=== PATIENT | male | born 1940 | race Caucasian/White ===

== ENCOUNTER 2022-04-07 12:23 | Inpatient (IN) | payer MEDICARE, OTHER ==
[2022-04-07 14:39] LABS: Basophils % (A) 1 %; Eosinophils # (A) 0.2 k/uL (0-0.7); Eosinophils % (A) 2 %; HCT 40.7 % (39.0-53.0); Lymphocytes # (A) 1.1 k/uL (1.0-4.8); Lymphocytes % (A) 14 %; MCH 31.3 pg (25.0-35.0); MCHC 34.6 g/dL (31.0-37.0); MCV 90.6 fL (80.0-100.0); Mean Platelet Volume 7.8; Monocytes # (A) 0.5 k/uL (0-1.0); Monocytes % (A) 6 %; Neutrophils % (A) 74 %; Platelet Count 235 k/uL (150-450); RBC 4.49 m/uL (4.30-5.90); RDW 12.7 % (11.5-15.5); WBC 8.2 k/uL (3.8-10.6)
[2022-04-07 14:51] LABS: ALT 16 U/L (4-49); AST 23 U/L (17-59); African American GFR (CKD) >90 (>60 ml/min/1.73 sqM); Alkaline Phosphatase 98 U/L (38-126); Anion Gap 12 mmol/L; Blood Urea Nitrogen 11 mg/dL (9-20); Calcium 8.9 mg/dL (8.4-10.2); Carbon Dioxide 23 mmol/L (22-30); Chloride 98 mmol/L (98-107); Glucose 99 mg/dL (74-99); Non-African American GFR(CKD) >90 (>60 ml/min/1.73 sqM); Potassium 3.9 mmol/L (3.5-5.1); Sodium 133 mmol/L (137-145); Total Bilirubin 0.5 mg/dL (0.2-1.3); Total Protein 7.1 g/dL (6.3-8.2)
--- NOTE | 2022-04-07 17:02 | ED ---
Skin/Abscess/FB HPI - General Chief complaint: Skin/Abscess/Foreign Body Stated complaint: leg wound Time Seen by Provider: 04/07/22 16:24 Source: patient, family, RN notes reviewed Mode of arrival: ambulatory Limitations: no limitations - History of Present Illness Initial comments: This is an 81-year-old male who presents to the emergency department for a left leg infection. States that this infection has been present for 5 weeks. Right before this occurred, he injured this leg when he was getting out of his truck, and he believes this injury caused the infection. He is currently on his second round of oral antibiotics. When this first began, he was given a 10 day course of oral antibiotics and an IM injection provided by urgent care. He is unable to recall what these medications were. For the last 5 days, he has been on oral doxycycline. During the time that this infection has been present, he has had physicians at urgent care attempt to drain it with no improvement. States that they were unable to get any purulent material and it was largely blood. Over the last 3-4 days is when he has felt like the infection has gotten much worse. It has also started draining, which it has not done in the past. He denies any fevers, but states that he has felt "off" for the last week. He is able to walk, but states that the leg itself is very painful and tender. 1-2 weeks ago he did have an ultrasound on this leg, which was negative for a blood clot. Denies any fevers, chills, sore throat, cough, dyspnea, chest pain, p alpitations, abdominal pain, nausea, vomiting, diarrhea, back pain, or headaches. MD complaint: rash, abscess/boil Onset/Timin -: week(s) Location: L[facility] Treatments Prior to Arrival: bandages, antibiotic - Related Data Allergies Allergy/AdvReac Type Severity Reaction Status Date / Time No Known Allergies Allergy Verified 04/07/22 12:35 Review of Systems ROS Statement: Those systems with pertinent positive or pertinent negative responses have been documented in the HPI. ROS Other: All systems not noted in ROS Statement are negative. Past Medical History Past Medical History: Hypertension, Prostate Disorder Past Surgical History: Hernia Repair General Exam Limitations: no limitations General appearance: alert, in no apparent distress Head exam: Present: atraumatic, normocephalic, normal inspection Respiratory exam: Present: normal lung sounds bilaterally. Absent: respiratory distress, wheezes, rales, rhonchi, stridor Cardiovascular Exam: Present: regular rate, normal rhythm, normal heart sounds. Absent: systolic murmur, diastolic murmur, rubs, gallop, clicks Extremities exam: Present: other (Diffuse erythema and swelling of the left lower extremity beginning inferior to the left patella and spreading distally. There is what appears to be a large 7 cm abscess with active serous and purulent drainage.) Neurological exam: Present: alert, oriented X3, CN II-XII intact Psychiatric exam: Present: normal affect, normal mood Course Vital Signs 04/07/22 12:35 Temperature 97.4 F L Pulse Rate 94 Respiratory 16 Rate Blood Pressure 130/79 O2 Sat by Pulse 97 Oximetry Medical Decision Making - Medical Decision Making This is an 81-year-old male who presents to the emergency department for a left leg infection. Lab work was obtained revealing no actionable findings and his vital signs are stable, which in combination do not create a septic presentation. X-ray of the left tib-fib obtained for evaluation of any osseous involvement. X-ray revealed diffuse soft tissue swelling of the left upper calf, knee, and distal thigh. Given that the patient has failed 2 rounds of antibiotics outpatient, he'll be admitted to medicine for failed outpatient antibiotic management. Patient started on vancomycin and cefepime with blood and wound cultures obtained prior. Additionally, ESR, CRP, and procalcitonin ordered, with results pending at the time of admission. This case was discussed in detail with the attending ED physician. Presentation, findings, and treatment plan discussed in detail as well. - Lab Data Result diagrams: 04/07/22 14:06 04/07/22 14:06 Lab Results 04/07/22 04/07/22 04/07/22 Range/Units 14:06 14:06 14:35 WBC 8.2 (3.8-10.6) k/uL RBC 4.49 (4.30-5.90) m/uL Hgb 14.0 (13.0-17.5) gm/dL Hct 40.7 (39.0-53.0) % MCV 90.6 (80.0-100.0) fL MCH 31.3 (25.0-35.0) pg MCHC 34.6 (31.0-37.0) g/dL RDW 12.7 (11.5-15.5) % Plt Count 235 (150-450) k/uL MPV 7.8 Neutrophils % 74 % Lymphocytes % 14 % Monocytes % 6 % Eosinophils % 2 % Basophils % 1 % Neutrophils # 6.0 (1.3-7.7) k/uL Lymphocytes # 1.1 (1.0-4.8) k/uL Monocytes # 0.5 (0-1.0) k/uL Eosinophils # 0.2 (0-0.7) k/uL Basophils # 0.0 (0-0.2) k/uL Sodium 133 L (137-145) mmol/L Potassium 3.9 (3.5-5.1) mmol/L Chloride 98 (98-107) mmol/L Carbon Dioxide 23 (22-30) mmol/L Anion Gap 12 mmol/L BUN 11 (9-20) mg/dL Creatinine 0.65 L (0.66-1.25) mg/dL Est GFR (CKD-EPI)AfAm >90 (>60 ml/min/1.73 sqM) Est GFR (CKD-EPI)NonAf >90 (>60 ml/min/1.73 sqM) Glucose 99 (74-99) mg/dL Plasma Lactic Acid Binu 0.9 (0.7-2.0) mmol/L Calcium 8.9 (8.4-10.2) mg/dL Total Bilirubin 0.5 (0.2-1.3) mg/dL AST 23 (17-59) U/L ALT 16 (4-49) U/L Alkaline Phosphatase 98 (38-126) U/L Total Protein 7.1 (6.3-8.2) g/dL Albumin 4.0 (3.5-5.0) g/dL - Radiology Data Radiology results: report reviewed, image reviewed Disposition Clinical Impression: Cellulitis of left leg, Abscess of left leg Disposition: ADMITTED IP TO THIS [facility] Referrals: Arthur Armstrong MD [Primary Care Provider] - 1-2 days
--- NOTE | 2022-04-07 17:20 | XR ---
EXAMINATION TYPE: XR tibia fibula LT DATE OF EXAM: 04/07/2022 4:49 PM INDICATION: Patient age:Male; 81 years old; Reason for study: infection; PHH. COMPARISON: None TECHNIQUE: The left tibia/fibula was examined in AP and lateral projections. FINDINGS: No evidence for fracture or dislocation. There is mild degenerative changes of the left kne e joint. Diffuse soft tissue swelling of the upper calf, knee and distal thigh regions. IMPRESSION: Diffuse soft tissue swelling. No acute osseous pathology.
[2022-04-07] MEDS ORDERED: VANCOMYCIN IV PER PHARMACY 1 EACH MISC MISCELLANE PRN (17:41)
[2022-04-07] MEDS ORDERED: VANCOMYCIN 1,250 MG in SODIUM CHLORIDE 0.9% 250 ML IVPB SCH (17:45)
[2022-04-07] MEDS ORDERED: CEFEPIME 2 GM in SODIUM CHLORIDE 0.9% 100 ML IVPB SCH (17:45)
[2022-04-07] MEDS ORDERED: ACETAMINOPHEN TAB 325 MG TAB PO PRN (17:59)
[2022-04-07] MEDS ORDERED: KETOROLAC 15 MG/ML 1 ML VIAL IVP PRN (17:59)
[2022-04-07] MEDS ORDERED: NALOXONE 0.4 MG/ML 1 ML VIAL IV PRN (17:59)
[2022-04-07] MEDS ORDERED: IBUPROFEN 400 MG TAB PO PRN (17:59)
[2022-04-07] MEDS ORDERED: HYDROcodone/APAP 5-325MG 1 EACH TAB PO PRN (17:59)
[2022-04-07] MEDS ORDERED: CEFEPIME 2 GM in SODIUM CHLORIDE 0.9% 100 ML IVPB ONE (18:00)
[2022-04-07] MEDS ORDERED: VANCOMYCIN 1,500 MG in SODIUM CHLORIDE 0.9% 250 ML IVPB ONE (18:00)
[2022-04-08] MEDS: TAMSULOSIN 0.4 MG CAP.ER.24H PO SCH ×2 (00:21→22:11)
[2022-04-08] MEDS: FINASTERIDE 5 MG TAB PO SCH ×2 (00:23→22:11)
[2022-04-08] MEDS: VANCOMYCIN 1,500 MG in SODIUM CHLORIDE 0.9% 250 ML IVPB SCH ×2 (05:20→17:17)
[2022-04-08] MEDS: CEFEPIME 2 GM in SODIUM CHLORIDE 0.9% 100 ML IVPB SCH ×2 (05:48→17:18)
[2022-04-08 07:34] LABS: African American GFR (CKD) >90 (>60 ml/min/1.73 sqM); Non-African American GFR(CKD) >90 (>60 ml/min/1.73 sqM)
[2022-04-08] MEDS: CYANOCOBALAMIN 500 MCG TAB PO SCH (07:54)
[2022-04-08] MEDS: amLODIPine 5 MG TAB PO SCH (07:54)
[2022-04-08] MEDS ORDERED: amLODIPine 10 MG TAB PO SCH (09:00)
--- NOTE | 2022-04-08 11:40 | P.GSCN ---
History of Present Illness History of present illness: 81-year-old gentleman patient came to ER with history of trauma to the left lower leg for the past 4 weeks. Patient went to the urgent care they made a small incision and they drained it but his swelling persisted and patient was put on antibiotic not responding now he is draining Purulent drainage patient had a culture done and is spending patient is an IV antibiotic and infectious disease. Medical history no history of diabetes patient has history of hypertension and prostate disorder Neck is supple no bruit appreciated Chest is clear good and both lungs abdomen is soft nontender Vascular femorals are palpable posterior tibial palpable patient has a marked swelling of the left leg most likely infected hematoma Plan is a I&D and debridement and deep culture Past Medical History Past Medical History: Hypertension, Prostate Disorder History of Any Multi-Drug Resistant Organisms: None Reported Past Surgical History: Hernia Repair Past Anesthesia/Blood Transfusion Reactions: No Reported Reaction Past Psychological History: No Psychological Hx Reported Smoking Status: Former smoker Past Alcohol Use History: Occasional Medications and Allergies Home Medications Medication Instructions Recorded Confirmed Type Cyanocobalamin (Vitamin B-12) 1,000 mcg PO DAILY 04/07/22 04/07/22 History [Vitamin B-12] Doxycycline Hyclate 100 mg PO BID 04/07/22 04/07/22 History Finasteride [Proscar] 5 mg PO HS 04/07/22 04/07/22 History Tamsulosin [Flomax] 0.4 mg PO HS 04/07/22 04/07/22 History Vit C/E/Zn/Coppr/Lutein/Zeaxan 1 cap PO BID 04/07/22 04/07/22 History [Preservision Areds 2 Softgel] amLODIPine [Norvasc] 5 mg PO DAILY 04/07/22 04/07/22 History Allergies Allergy/AdvReac Type Severity Reaction Status Date / Time No Known Allergies Allergy Verified 04/07/22 19:50 Surgical - Exam Vital Signs Temp Pulse Resp BP Pulse Ox 97.4 F L 94 16 130/79 97 04/07/22 12:35 04/07/22 12:35 04/07/22 12:35 04/07/22 12:35 04/07/22 12:35 Results - Labs 04/07/22 14:06 04/08/22 06:30 Abnormal Lab Results - Last 24 Hours (Table) 04/07/22 04/07/2204/07/22 Range/Units 14:06 18:30 18:30 ESR 24 H (0-15) mm/hr Sodium 133 L (137-145) mmol/L Creatinine 0.65 L (0.66-1.25) mg/dL C-Reactive Protein 4.0 H (<1.0) mg/dL 04/08/22 Range/Units 06:30 ESR (0-15) mm/hr Sodium (137-145) mmol/L Creatinine 0.55 L (0.66-1.25) mg/dL C-Reactive Protein (<1.0) mg/dL Microbiology - Last 24 Hours (Table) 04/07/22 16:54 Gram Stain - Preliminary Leg - Left Wound Culture - Preliminary 04/07/22 16:54 Anaerobic Culture - Preliminary Leg - Left Diabetes panel 04/07/22 04/08/22 Range/Units 14:06 06:30 Sodium 133 L (137-145) mmol/L Potassium 3.9 (3.5-5.1) mmol/L Chloride 98 (98-107) mmol/L Carbon Dioxide 23 (22-30) mmol/L BUN 11 (9-20) mg/dL Creatinine 0.65 L 0.55 L (0.66-1.25) mg/dL Glucose 99 (74-99) mg/dL Calcium 8.9 (8.4-10.2) mg/dL AST 23 (17-59) U/L ALT 16 (4-49) U/L Alkaline Phosphatase 98 (38-126) U/L Total Protein 7.1 (6.3-8.2) g/dL Albumin 4.0 (3.5-5.0) g/dL Calcium panel 04/07/22 Range/Units 14:06 Calcium 8.9 (8.4-10.2) mg/dL Albumin 4.0 (3.5-5.0) g/dL Pituitary panel 04/07/22 04/08/22 Range/Units 14:06 06:30 Sodium 133 L (137-145) mmol/L Potassium 3.9 (3.5-5.1) mmol/L Chloride 98 (98-107) mmol/L Carbon Dioxide 23 (22-30) mmol/L BUN 11 (9-20) mg/dL Creatinine 0.65 L 0.55 L (0.66-1.25) mg/dL Glucose 99 (74-99) mg/dL Calcium 8.9 (8.4-10.2) mg/dL Adrenal panel 04/07/22 04/08/22 Range/Units 14:06 06:30 Sodium 133 L (137-145) mmol/L Potassium 3.9 (3.5-5.1) mmol/L Chloride 98 (98-107) mmol/L Carbon Dioxide 23 (22-30) mmol/L BUN 11 (9-20) mg/dL Creatinine 0.65 L 0.55 L (0.66-1.25) mg/dL Glucose 99 (74-99) mg/dL Calcium 8.9 (8.4-10.2) mg/dL Total Bilirubin 0.5 (0.2-1.3) mg/dL AST 23 (17-59) U/L ALT 16 (4-49) U/L Alkaline Phosphatase 98 (38-126) U/L Total Protein 7.1 (6.3-8.2) g/dL Albumin 4.0 (3.5-5.0) g/dL
[2022-04-08] MEDS ORDERED: NAPROXEN 250 MG TAB PO STA (12:17)
[2022-04-08] MEDS: ENOXAPARIN 40 MG/0.4 ML SYRINGE SQ SCH (14:16)
--- NOTE | 2022-04-08 18:02 | P.HPIM ---
History of Present Illness H&P Date: 04/08/22 Chief Complaint: Left leg wound This is a pleasant 81-year-old patient who follows with visiting physicians Dr. Armstrong. Patient is a resident of [facility]. Chronic stable medical conditions include hypertension, BPH, B12. About 5 weeks ago patient is helping his son unload stuff from his truck. He put the stuff on the ground. When he turned around he bumped his left leg on the same. There was a cut there. Subsequently medical. He did have a visit. By his family doctor and put him on doxycycline which took for 6 days. It progressed to get worse. Patient d eveloped a swelling with redness of the left lower extremity. No fever no chills. Appetite has been fair. No change in bowel pattern. He did have a visit to the urgent care with attempt to drainage not much was obtained. Recent ultrasound was negative for DVT. Review of systems: GEN.: Tired, EYES: None HEENT: None NECK: None RESPIRATORY: None CARDIOVASCULAR: None GASTROINTESTINAL: None GENITOURINARY: None MUSCULOSKELETAL: Joint pains LYMPHATICS: None HEMATOLOGICAL: None PSYCHIATRY: None NEUROLOGICAL: None Past medical history to include: Hypertension, prostate disorder, B12 deficiency Social history: Lives at [facility]. His also listed the dementia unit. Patient smoked for about 25 years stopped about 37 years ago. Used to work for IT. Alcohol occasionally. Physical examination: VITAL SIGNS: 97.4, 94, 16, 1:30/79, 97% room air GENERAL: BMI 24.4, declining but awake not in distress. EYES: Pupils equal. Conjunctiva normal. HEENT: External appearance of nose and ears normal, oral cavity grossly normal. NECK: JVD not raised; masses not palpable. HEART: First and second heart sounds are normal; no edema. LUNGS: Respiratory rate normal; clear to auscultation. ABDOMEN: Soft, nontender, liver spleen not palpable, no masses palpable. PSYCH: Alert and oriented x3; mood and affect normal. MUSCULOSKELETAL:No Clubbing/cyanosis;muscles-grossly intact. Evidence of OA. Left lower extremity large area of swelling tenderness with surrounding cellulitis extending from the knee down to the lower extremity. NEUROLOGICAL: Cranial nerves grossly intact; no facial asymmetry, power and sensation grossly intact. LYMPHATICS: No lymph nodes palpable in the axilla and neck INVESTIGATIONS, reviewed in the clinical context: White count 8.2 hemoglobin 14 platelets 235 sodium 133 potassium 3.9 creatinine 0.65 CRP 4 Pro-calcitonin 0.05 Assessment plan: -Suspected infected hematoma. Patient had injury about 5 weeks ago. He decided go. That had a course of doxycycline for 6 days. No major improvement. Now presented increasing local pain and surrounding cellulitis. IV cefepime, IV vancomycin. Consultation to vascular and ID. -BPH Proscar -Vitamin B12 deficiency Vitamin B12 -Essential hypertension Norvasc IV cefepime, IV vancomycin. Consultation to vascular 90. Should be taken to the OR tomorrow. Resume home medications. Subcu Lovenox. Naproxen for anti- inflammatory and pain. Care was discussed with the patient. Questions answered. Given the complexity and severity of patient's condition expect the patient to be in the hospital at least for 2 overnights Past Medical History Past Medical History: Hypertension, Prostate Disorder History of Any Multi-Drug Resistant Organisms: None Reported Past Surgical History: Hernia Repair Past Anesthesia/Blood Transfusion Reactions: No Reported Reaction Past Psychological History: No Psychological Hx Reported Smoking Status: Former smoker Past Alcohol Use History: Occasional Medications and Allergies Home Medications Medication Instructions Recorded Confirmed Type Cyanocobalamin (Vitamin B-12) 1,000 mcg PO DAILY 04/07/22 04/07/22 History [Vitamin B-12] Doxycycline Hyclate 100 mg PO BID 04/07/22 04/07/22 History Finasteride [Proscar] 5 mg PO HS 04/07/22 04/07/22 History Tamsulosin [Flomax] 0.4 mg PO HS 04/07/22 04/07/22 History Vit C/E/Zn/Coppr/Lutein/Zeaxan 1 cap PO BID 04/07/22 04/07/22 History [Preservision Areds 2 Softgel] amLODIPine [Norvasc] 5 mg PO DAILY 04/07/22 04/07/22 History Allergies Allergy/AdvReac Type Severity Reaction Status Date / Time No Known Allergies Allergy Verified 04/07/22 19:50 Physical Exam Vitals: Vital Signs Temp Pulse Pulse Resp BP BP Pulse Ox 04/08/22 11:14 97.9 F 70 16 133/69 96 04/08/22 08:03 73 152/76 04/08/22 05:55 98.4 F 79 16 119/69 95 04/07/22 22:57 97.6 F 95 16 150/80 97 04/07/22 12:35 97.4 F L 94 16 130/79 97 Intake and Output 04/07/22 04/08/22 04/08/22 22:59 06:59 14:59 Other: # Voids 2 Results CBC & Chem 7: 04/07/22 14:06 04/08/22 06:30 Labs: Abnormal Lab Results - Last 24 Hours (Table) 04/07/22 04/07/22 04/07/22 Range/Units 14:06 18:30 18:30 ESR 24 H (0-15) mm/hr Sodium 133 L (137-145) mmol/L Creatinine 0.65 L (0.66-1.25) mg/dL C-Reactive Protein 4.0 H (<1.0) mg/dL 04/08/22 Range/Units 06:30 ESR (0-15) mm/hr Sodium (137-145) mmol/L Creatinine 0.55 L (0.66-1.25) mg/dL C-Reactive Protein (<1.0) mg/dL Microbiology - Last 24 Hours (Table) 04/07/22 16:54 Gram Stain - Preliminary Leg - Left Wound Culture - Preliminary 04/07/22 16:54 Anaerobic Culture - Preliminary Leg - Left Thrombosis Risk Factor Assmnt - Choose All That Apply Any of the Below Risk Factors Present?: Yes Each Factor Represents 1 point: Swollen legs (current) Other Risk Factors: Yes Each Risk Factor Represents 3 Points: Age 75 years or older Thrombosis Risk Factor Assessment Total Risk Factor Score: 4 Thrombosis Risk Factor Assessment Level: Moderate Risk
[2022-04-08] MEDS: NAPROXEN 250 MG TAB PO SCH (22:11)
[2022-04-09] MEDS ORDERED: VANCOMYCIN TROUGH DUE 1 EACH MISC MISCELLANE ONE (05:00)
[2022-04-09 05:01] LABS: African American GFR (CKD) >90 (>60 ml/min/1.73 sqM); Non-African American GFR(CKD) >90 (>60 ml/min/1.73 sqM)
[2022-04-09] MEDS: VANCOMYCIN 1,500 MG in SODIUM CHLORIDE 0.9% 250 ML IVPB SCH ×2 (05:54→19:47)
[2022-04-09] MEDS: CEFEPIME 2 GM in SODIUM CHLORIDE 0.9% 100 ML IVPB SCH ×2 (05:55→19:47)
[2022-04-09] MEDS: NAPROXEN 250 MG TAB PO SCH ×3 (09:07→19:48)
[2022-04-09] MEDS: amLODIPine 5 MG TAB PO SCH (09:07)
[2022-04-09] MEDS: ENOXAPARIN 40 MG/0.4 ML SYRINGE SQ SCH (09:12)
--- NOTE | 2022-04-09 10:37 | P.PN ---
Progress Note - Text Progress Note Date: 04/09/22 Chief Complaint: Left leg wound This is a pleasant 81-year-old patient who follows with visiting physicians Dr. Armstrong. Patient is a resident of [facility]. Chronic stable medical conditions include hypertension, BPH, B12. About 5 weeks ago patient is helping his son unload stuff from his truck. He put the stuff on the ground. When he turned around he bumped his left leg on the same. There was a cut there. Subsequently medical. He did have a visit. By his family doctor and put him on doxycycline which took for 6 days. It progressed to get worse. Patient developed a swelling with redness of the left lower extremity. No fever no chills. Appetite has been fair. No change in bowel pattern. He did have a visit to the urgent care with attempt to drainage not much was obtained. Recent ultrasound was negative for DVT. Admitted with what appears to be left leg abscess/infected hematoma. Surrounding cellulitis. On IV cefepime and vancomycin. 04/09/2022: Sitting up in bed. Some local pain present. Ending surgery later this afternoon. On IV antibiotics include vancomycin and cefepime. Patient's son Scottie visiting. Active Medications Acetaminophen (Acetaminophen Tab 325 Mg Tab) 650 mg PO Q6HR PRN PRN Reason: Mild Pain or Fever > 100.5 Hydrocodone Bitart/Acetaminophen (Hydrocodone/Apap 5-325mg 1 Each Tab) 1 each PO Q4HR PRN PRN Reason: Moderate Pain (Scale 4 to 6) Amlodipine Besylate (Amlodipine 5 Mg Tab) 5 mg PO DAILY [facility] Last Admin: 04/09/22 09:07 Dose: 5 mg Cyanocobalamin (Cyanocobalamin 500 Mcg Tab) 1,000 mcg PO DAILY [facility] Last Admin: 04/08/22 07:54 Dose: 1,000 mcg Enoxaparin Sodium (Enoxaparin 40 Mg/0.4 Ml Syringe) 40 mg SQ DAILY [facility] Last Admin: 04/09/22 09:12 Dose: Not Given Finasteride (Finasteride 5 Mg Tab) 5 mg PO HS [facility] Last Admin: 04/08/22 22:11 Dose: 5 mg Vancomycin HCl 1,500 mg/ (Sodium Chloride) 250 mls @ 125 mls/hr IVPB Q12H [facility] Last Admin: 04/09/22 05:54 Dose: 125 mls/hr Cefepime HCl 2 gm/ Sodium (Chloride) 100 mls @ 25 mls/hr IVPB Q12H [facility] Last Admin: 04/09/22 05:55 Dose: 25 mls/hr Naloxone HCl (Naloxone 0.4 Mg/Ml 1 Ml Vial) 0.2 mg IV Q2M PRN PRN Reason: Opioid Reversal Naproxen (Naproxen 250 Mg Tab) 250 mg PO TID [facility] Last Admin: 04/09/22 09:07 Dose: 250 mg Ondansetron HCl (Ondansetron 4 Mg/2 Ml Vial) 4 mg IVP Q8HR PRN PRN Reason: Nausea And Vomiting Tamsulosin HCl (Tamsulosin 0.4 Mg Cap.Er.24h) 0.4 mg PO HS [facility] Last Admin: 04/08/22 22:11 Dose: 0.4 mg Past medical history to include: Hypertension, prostate disorder, B12 deficiency Social history: Lives at [facility]. His also listed the dementia unit. Patient smoked for about 25 years stopped about 37 years ago. Used to work for IT. Alcohol occasionally. Physical examination: VITAL SIGNS: 97.9, 72, 18, 137/74, 95% room air GENERAL: reclining but awake not in distress. EYES: Pupils equal. Conjunctiva normal. HEENT: External appearance of nose and ears normal, oral cavity grossly normal. NECK: JVD not raised; masses not palpable. HEART: First and second heart sounds are normal; no edema. LUNGS: Respiratory rate normal; clear to auscultation. ABDOMEN: Soft, nontender, liver spleen not palpable, no masses palpable. PSYCH: Alert and oriented x3; mood and affect normal. MUSCULOSKELETAL:No Clubbing/cyanosis;muscles-grossly intact. Evidence of OA. Left lower extremity large area of swelling tenderness with surrounding cellulitis extending from the knee down to the lower extremity. INVESTIGATIONS, reviewed in the clinical context: ESR 24 White count 8.2 hemoglobin 14 platelets 235 sodium 133 potassium 3.9 creatinine 0.65 CRP 4 Pro-calcitonin 0.05 Assessment plan: -Suspected infected hematoma. - injury about 5 weeks ago. had a course of doxycycline for 6 days. No major improvement. Now presented increasing local pain and surrounding cellulitis. IV cefepime, IV vancomycin. Consultation to vascular and ID. pending surgery later today -BPH Proscar -Vitamin B12 deficiency Vitamin B12 -Essential hypertension Norvasc IV cefepime, IV vancomycin. Pending surgery later this afternoon. Discussed with patient's son the bedside.
--- NOTE | 2022-04-09 11:10 | P.CONS ---
History of Present Illness - Reason for Consult Consult date: 04/08/22 - History of Present Illness Patient is 81 year old male presenting to be of for evaluation of worsening swelling redness to left lower extremity apparent the patient did have an injury to the left lower leg when he was getting out of the truck and believed to have hit the end of the leg patient subsequently noticed to have increasing swelling and redness and apparent has been treated with a course of antibiotic last course has been ordered AGAIN however the last few days the patient noticed to have increasing swelling and redness to left lower extremity patient describing pain to be throbbing 6-7 out of 10 and no radiation with associated swelling redness did have minimal drainage but no foul-smelling, p atient presented to the hospital was afebrile but did have a normal white count patient did have blood culture as well as local cultures obtained which are currently pending patient did have x-ray of the left tibia and fibula which did show some diffuse soft tissue swelling no acute bony abnormality, patient has been evaluated by vascular surgery planning for I&D debridement and deep culture, patient is currently be treated with vancomycin and cefepime and infectious disease was consulted for further management of antibiotic therapy Past Medical History Past Medical History: Hypertension, Prostate Disorder History of Any Multi-Drug Resistant Organisms: None Reported Past Surgical History: Hernia Repair Past Anesthesia/Blood Transfusion Reactions: No Reported Reaction Past Psychological History: No Psychological Hx Reported Smoking Status: Former smoker Past Alcohol Use History: Occasional Medications and Allergies Home Medications Medication Instructions Recorded Confirmed Type Cyanocobalamin (Vitamin B-12) 1,000 mcg PO DAILY 04/07/22 04/07/22 History [Vitamin B-12] Doxycycline Hyclate 100 mg PO BID 04/07/22 04/07/22 History Finasteride [Proscar] 5 mg PO HS 04/07/22 04/07/22 History Tamsulosin [Flomax] 0.4 mg PO HS 04/07/22 04/07/22 History Vit C/E/Zn/Coppr/Lutein/Zeaxan 1 cap PO BID 04/07/22 04/07/22 History [Preservision Areds 2 Softgel] amLODIPine [Norvasc] 5 mg PO DAILY 04/07/22 04/07/22 History Allergies Allergy/AdvReac Type Severity Reaction Status Date / Time No Known Allergies Allergy Verified 04/07/22 19:50 Physical Exam Vitals: Vital Signs Temp Pulse Pulse Resp BP BP Pulse Ox 04/08/22 08:03 73 152/76 04/08/22 05:55 98.4 F 79 16 119/69 95 04/07/22 22:57 97.6 F 95 16 150/80 97 04/07/22 12:35 97.4 F L 94 16 130/79 97 Intake and Output 04/07/22 04/08/22 04/08/22 22:59 06:59 14:59 Other: # Voids 2 Results CBC & Chem 7: 04/07/22 14:06 04/09/22 04:07 Labs: Abnormal Lab Results - Last 24 Hours (Table) 04/07/22 04/07/22 04/07/22 Range/Units 14:06 18:30 18:30 ESR 24 H (0-15) mm/hr Sodium 133 L (137-145) mmol/L Creatinine 0.65 L (0.66-1.25) mg/dL C-Reactive Protein 4.0 H (<1.0) mg/dL 04/08/22 Range/Units 06:30 ESR (0-15) mm/hr Sodium (137-145) mmol/L Creatinine 0.55 L (0.66-1.25) mg/dL C-Reactive Protein (<1.0) mg/dL Microbiology - Last 24 Hours (Table) 04/07/22 16:54 Gram Stain - Preliminary Leg - Left Wound Culture - Preliminary 04/07/22 16:54 Anaerobic Culture - Preliminary Leg - Left Assessment and Plan Plan: 1patient with the acute traumatic injury to the left lower extremity concerning for secondary cellulitis failing outpatient oral by therapy more likely from gram-positive skin gael less likely gram-negative infection 2-vascular surgery has evaluated the patient waiting for I&D and deep cultures 3-continue the vancomycin and cefepime while waiting for the cultures to finalize 4marked the area of the redness and dry protective dressing to the area We will follow on clinical condition and cultures to further adjust medication if needed Thank you for this consultation will follow this patient with you Time with Patient: Greater than 30
[2022-04-09] MEDS: CYANOCOBALAMIN 500 MCG TAB PO SCH (15:52)
[2022-04-09] MEDS ORDERED: fentaNYL (PF) 50 MCG/ML 2 ML AMP ONE (18:10)
[2022-04-09] MEDS ORDERED: PROPOFOL 10 MG/ML 20 ML VIAL IV ONE (18:10)
[2022-04-09] MEDS ORDERED: MIDAZOLAM 2 MG/2 ML VIAL ONE (18:10)
[2022-04-09] MEDS ORDERED: LIDOCAINE 2% INJ 20 MG/ML (2 ML VIAL) ONE (18:10)
[2022-04-09] MEDS ORDERED: SODIUM CHLORIDE 0.9% 1,000 ML IV ONE (18:10)
[2022-04-09] MEDS: FINASTERIDE 5 MG TAB PO SCH (19:48)
[2022-04-09] MEDS: TAMSULOSIN 0.4 MG CAP.ER.24H PO SCH (19:48)
[2022-04-10] MEDS: LACTATED RINGERS 1,000 ML IV SCH ×2 (00:25→15:57)
--- NOTE | 2022-04-10 01:40 | OP ---
OPERATIVE REPORT PREOPERATIVE DIAGNOSIS: Infected hematoma, left lower leg. POSTOPERATIVE DIAGNOSIS: Infected hematoma, left lower leg. OPERATION: Incision and drainage of infected hematoma with deep culture. DESCRIPTION OF PROCEDURE: This patient was brought to the operating room. Left leg was prepped and draped in the usual sterile manner. This patient had a trauma to the lower leg a few weeks ago. The patient came to the ER with swelling and discomfort in left lower leg. Incision was made on the left lower leg lateral aspect, deepened through skin fat and fascia. There was a large pocket of pus with some fat necrosis. The pus was completely drained and we took some deep culture. Wound was irrigated with hydrogen peroxide and saline. No active bleeding was noted. We used Aquacel Rope, which was placed. Pressure dressing applied. Patient tolerated the procedure well and was sent to the recovery room in satisfactory condition. SOUMYA / LEE: [id number] /
[2022-04-10] MEDS: VANCOMYCIN 1,500 MG in SODIUM CHLORIDE 0.9% 250 ML IVPB SCH (05:15)
[2022-04-10] MEDS: CEFEPIME 2 GM in SODIUM CHLORIDE 0.9% 100 ML IVPB SCH (05:15)
[2022-04-10 06:35] LABS: Basophils % (A) 0 %; Eosinophils # (A) 0.2 k/uL (0-0.7); Eosinophils % (A) 4 %; HCT 37.2 % (39.0-53.0); HGB 12.6 gm/dL (13.0-17.5); Lymphocytes # (A) 0.8 k/uL (1.0-4.8); Lymphocytes % (A) 14 %; MCH 30.8 pg (25.0-35.0); MCHC 33.8 g/dL (31.0-37.0); MCV 91.1 fL (80.0-100.0); Mean Platelet Volume 7.7; Monocytes # (A) 0.5 k/uL (0-1.0); Monocytes % (A) 8 %; Neutrophils # (A) 4.4 k/uL (1.3-7.7); Neutrophils % (A) 73 %; Platelet Count 213 k/uL (150-450); RBC 4.09 m/uL (4.30-5.90); RDW 12.5 % (11.5-15.5); WBC 6.1 k/uL (3.8-10.6)
[2022-04-10 06:54] LABS: African American GFR (CKD) >90 (>60 ml/min/1.73 sqM); Anion Gap 7 mmol/L; Blood Urea Nitrogen 25 mg/dL (9-20); Calcium 7.3 mg/dL (8.4-10.2); Carbon Dioxide 21 mmol/L (22-30); Chloride 107 mmol/L (98-107); Glucose 103 mg/dL (74-99); Non-African American GFR(CKD) 87 (>60 ml/min/1.73 sqM); Potassium 3.7 mmol/L (3.5-5.1); Sodium 135 mmol/L (137-145)
[2022-04-10] MEDS ORDERED: HYDROmorphone 0.5 MG/0.5 ML SYRINGE IVP PRN (07:00)
--- NOTE | 2022-04-10 08:38 | P.PN ---
Subjective Progress Note Date: 04/09/22 Principal diagnosis: Left leg infected hematoma Patient is a 81-year-old male with a recent history of trauma to the left leg developing a swelling redness failing outpatient ordered by therapy concerning for infected hematoma. On today's evaluation that is 04/09/2022, the patient denies having any fever and chills, patient is complaining of pain to the left lower extremity no worsening of her chest pain shortness of breath or cough no abdominal pain no diarrhea Objective - Vital Signs Vital signs: Vital Signs Temp 97.9 F 04/09/22 04:13 Pulse 72 04/09/22 04:13 Resp 18 04/09/22 04:13 BP 137/74 04/09/22 04:13 Pulse Ox 95 04/09/22 04:13 FiO2 Intake & Output 04/08/22 04/09/22 04/09/22 18:59 06:59 18:59 Intake Total 360 Balance 360 Intake: Oral 360 Other: Voiding Method Toilet # Voids 1 - Exam GENERAL DESCRIPTION: An elderly male lying in bed in no distress RESPIRATORY SYSTEM: Unlabored breathing , decreased breath sounds at bases HEART: S1 S2 regular rate and rhythm , ABDOMEN: Soft , no tenderness EXTREMITIES: Left lower extremity significant swelling and redness no drainage - Labs CBC & Chem 7: 04/10/22 05:48 04/10/22 05:48 Labs: Abnormal Lab Results - Last 24 Hours (Table) 04/09/22 Range/Units 04:07 Creatinine 0.61 L (0.66-1.25) mg/dL Microbiology - Last 24 Hours (Table) 04/07/22 16:54 Gram Stain - Preliminary Leg - Left Wound Culture - Preliminary Presumptive Staph aureus 04/07/22 14:06 Blood Culture - Preliminary Blood No Growth after 24 hours 04/07/22 14:06 Blood Culture - Preliminary Blood No Growth after 24 hours Assessment and Plan (1) Abscess of left leg Current Visit: Yes Status: Acute Code(s): L02.416 - CUTANEOUS ABSCESS OF LEFT LOWER LIMB SNOMED Code(s): 126472688 Plan: 1patient with the acute traumatic injury to the left lower extremity concerning for secondary cellulitis failing outpatient oral by therapy more likely from gram-positive skin gael less likely gram-negative infection 2-vascular surgery has evaluated the patient waiting for I&D and deep cultures, scheduled for this afternoon 3-patient to continue the vancomycin and cefepime while waiting for the cultures to finalize Time with Patient: Less than 30
[2022-04-10] MEDS: CYANOCOBALAMIN 500 MCG TAB PO SCH (10:05)
[2022-04-10] MEDS: ENOXAPARIN 40 MG/0.4 ML SYRINGE SQ SCH (10:05)
[2022-04-10] MEDS: amLODIPine 5 MG TAB PO SCH (10:05)
[2022-04-10] MEDS: NAPROXEN 250 MG TAB PO SCH ×3 (10:06→20:58)
--- NOTE | 2022-04-10 12:10 | P.PN ---
Progress Note - Text Progress Note Date: 04/10/22 Chief Complaint: Left leg wound This is a pleasant 81-year-old patient who follows with visiting physicians Dr. Armstrong. Patient is a resident of [facility]. Chronic stable medical conditions include hypertension, BPH, B12. About 5 weeks ago patient is helping his son unload stuff from his truck. He put the stuff on the ground. When he turned around he bumped his left leg on the same. There was a cut there. Subsequently medical. He did have a visit. By his family doctor and put him on doxycycline which took for 6 days. It progressed to get worse. Patient developed a swelling with redness of the left lower extremity. No fever no chills. Appetite has been fair. No change in bowel pattern. He did have a visit to the urgent care with attempt to drainage not much was obtained. Recent ultrasound was negative for DVT. Admitted with what appears to be left leg abscess/infected hematoma. Surrounding cellulitis. On IV cefepime and vancomycin. 04/09/2022: Sitting up in bed. Some local pain present. Ending surgery later this afternoon. On IV antibiotics include vancomycin and cefepime. Patient's son Scottie visiting. 04/10/2022: Left leg abscess was drained by Dr. Mittal yesterday. Large pocket of pus was removed. Cultures pending. Wound culture from the is growing MSSA. Antibiotics switched over to IV Ancef. Had his breakfast. Told to sit up in a chair. Active Medications Acetaminophen (Acetaminophen Tab 325 Mg Tab) 650 mg PO Q6HR PRN PRN Reason: Mild Pain or Fever > 100.5 Hydrocodone Bitart/Acetaminophen (Hydrocodone/Apap 5-325mg 1 Each Tab) 1 each PO Q4HR PRN PRN Reason: Moderate Pain (Scale 4 to 6) Amlodipine Besylate (Amlodipine 5 Mg Tab) 5 mg PO DAILY [facility] Last Admin: 04/10/22 10:05 Dose: 5 mg Cyanocobalamin (Cyanocobalamin 500 Mcg Tab) 1,000 mcg PO DAILY [facility] Last Admin: 04/10/22 10:05 Dose: 1,000 mcg Enoxaparin Sodium (Enoxaparin 40 Mg/0.4 Ml Syringe) 40 mg SQ DAILY [facility] Last Admin: 04/10/22 10:05 Dose: 40 mg Finasteride (Finasteride 5 Mg Tab) 5 mg PO HS [facility] Last Admin: 04/09/22 19:48 Dose: 5 mg Hydromorphone HCl (Hydromorphone 0.5 Mg/0.5 Ml Syringe) 0.5 mg IVP Q5M PRN PRN Reason: Phase 1 or 2 - Pain Control Stop: 04/10/22 23:00 Lactated Ringer's (Lactated Ringers) 1,000 mls @ 20 mls/hr IV .Q24H [facility] Last Admin: 04/10/22 00:25 Dose: Not Given Cefazolin Sodium 2 gm/ Sodium (Chloride) 50 mls @ 100 mls/hr IVPB Q8HR [facility]; Protocol Last Admin: 04/10/22 10:02 Dose: 100 mls/hr Naloxone HCl (Naloxone 0.4 Mg/Ml 1 Ml Vial) 0.2 mg IV Q2M PRN PRN Reason: Opioid Reversal Naproxen (Naproxen 250 Mg Tab) 250 mg PO TID [facility] Last Admin: 04/10/22 10:06 Dose: Not Given Ondansetron HCl (Ondansetron 4 Mg/2 Ml Vial) 4 mg IVP Q8HR PRN PRN Reason: Nausea And Vomiting Tamsulosin HCl (Tamsulosin 0.4 Mg Cap.Er.24h) 0.4 mg PO [facility] Last Admin: 04/09/22 19:48 Dose: 0.4 mg Past medical history to include: Hypertension, prostate disorder, B12 deficiency Social history: Lives at [facility]. His also listed the dementia unit. Patient smoked for about 25 years stopped about 37 years ago. Used to work for [employer]. Alcohol occasionally. Physical examination: VITAL SIGNS: 98.6, 85, 18, 141/75, 96% room air GENERAL: reclining in bed EYES: Pupils equal. Conjunctiva normal. HEENT: External appearance of nose and ears normal, oral cavity grossly normal. NECK: JVD not raised; masses not palpable. HEART: First and second heart sounds are normal; no edema. LUNGS: Respiratory rate normal; clear to auscultation. ABDOMEN: Soft, nontender, liver spleen not palpable, no masses palpable. PSYCH: Alert and oriented x3; mood and affect normal. MUSCULOSKELETAL:No Clubbing/cyanosis;muscles-grossly intact. Evidence of OA. Left lower extremity dressing over the abscess site. INVESTIGATIONS, reviewed in the clinical context: April 10: White count 6.1 hemoglobin 12.6 platelets 23 progression 2.7 creatinine 0.74 ESR 24 White count 8.2 hemoglobin 14 platelets 235 sodium 133 potassium 3.9 creatinine 0.65 CRP 4 Pro-calcitonin 0.05 Assessment plan: -Abscess left lower extremity - injury about 5 weeks ago. had a course of doxycycline for 6 days. No major improvement. Now presented increasing local pain and surrounding cellulitis. Culture positive for MSSA. Pus drained on April [address] Mittal. Wound care per him. Follow with ID. -BPH Proscar -Vitamin B12 deficiency Vitamin B12 -Essential hypertension Norvasc Antibiotic changed to IV Ancef. Other medications to continue. Wound care per Dr. Mittal. Discussed with patient. Up in a chair. Increase activity.
[2022-04-10] MEDS: ONDANSETRON 4 MG/2 ML VIAL IVP PRN (16:50)
[2022-04-10] MEDS: TAMSULOSIN 0.4 MG CAP.ER.24H PO SCH (20:58)
[2022-04-10] MEDS: FINASTERIDE 5 MG TAB PO SCH (20:59)
--- NOTE | 2022-04-11 08:17 | P.PN ---
Progress Note - Text Patient seen this morning 81-year-old patient came with abscess lateral aspect of the left lower leg traumatic patient had a I&D and deep culture staph aureus but culture patient IV antibiotic today we have changed the dressing this morning wound was irrigated irrigated with saline and excess silver rope placed in the wound dressing applied next dressing change on Saturday
[2022-04-11] MEDS: NAPROXEN 250 MG TAB PO SCH ×3 (08:47→20:29)
[2022-04-11] MEDS: CYANOCOBALAMIN 500 MCG TAB PO SCH (08:59)
[2022-04-11] MEDS: ENOXAPARIN 40 MG/0.4 ML SYRINGE SQ SCH ×2 (09:00→09:02)
[2022-04-11] MEDS: amLODIPine 5 MG TAB PO SCH (09:00)
--- NOTE | 2022-04-11 12:20 | P.PN ---
Progress Note - Text Progress Note Date: 04/11/22 Chief Complaint: Left leg wound This is a pleasant 81-year-old patient who follows with visiting physicians Dr. Armstrong. Patient is a resident of [facility]. Chronic stable medical conditions include hypertension, BPH, B12. About 5 weeks ago patient is helping his son unload stuff from his truck. He put the stuff on the ground. When he turned around he bumped his left leg on the same. There was a cut there. Subsequently medical. He did have a visit. By his family doctor and put him on doxycycline which took for 6 days. It progressed to get worse. Patient developed a swelling with redness of the left lower extremity. No fever no chills. Appetite has been fair. No change in bowel pattern. He did have a visit to the urgent care with attempt to drainage not much was obtained. Recent ultrasound was negative for DVT. Admitted with what appears to be left leg abscess/infected hematoma. Surrounding cellulitis. On IV cefepime and vancomycin. 04/09/2022: Sitting up in bed. Some local pain present. Ending surgery later this afternoon. On IV antibiotics include vancomycin and cefepime. Patient's son Scottie visiting. 04/10/2022: Left leg abscess was drained by Dr. Mittal yesterday. Large pocket of pus was removed. Cultures pending. Wound culture from the is growing MSSA. Antibiotics switched over to IV Ancef. Had his breakfast. Told to sit up in a chair. 04/11/2022: Pain well controlled. Eating well. Did walk in the hallway. Dressing change per Dr. Mittal. On IV Ancef. Active Medications Acetaminophen (Acetaminophen Tab 325 Mg Tab) 650 mg PO Q6HR PRN PRN Reason: Mild Pain or Fever > 100.5 Hydrocodone Bitart/Acetaminophen (Hydrocodone/Apap 5-325mg 1 Each Tab) 1 each PO Q4HR PRN PRN Reason: Moderate Pain (Scale 4 to 6) Amlodipine Besylate (Amlodipine 5 Mg Tab) 5 mg PO DAILY [facility] Last Admin: 04/11/22 09:00 Dose: 5 mg Cyanocobalamin (Cyanocobalamin 500 Mcg Tab) 1,000 mcg PO DAILY [facility] Last Admin: 04/11/22 08:59 Dose: 1,000 mcg Enoxaparin Sodium (Enoxaparin 40 Mg/0.4 Ml Syringe) 40 mg SQ DAILY [facility] Last Admin: 04/11/22 09:02 Dose: Not Given Finasteride (Finasteride 5 Mg Tab) 5 mg PO HS [facility] Last Admin: 04/10/22 20:59 Dose: 5 mg Lactated Ringer's (Lactated Ringers) 1,000 mls @ 20 mls/hr IV .Q24H [facility] Last Admin: 04/10/22 15:57 Dose: Not Given Cefazolin Sodium 2 gm/ Sodium (Chloride) 50 mls @ 100 mls/hr IVPB Q8HR [facility]; Protocol Last Admin: 04/11/22 09:00 Dose: 100 mls/hr Naloxone HCl (Naloxone 0.4 Mg/Ml 1 Ml Vial) 0.2 mg IV Q2M PRN PRN Reason: Opioid Reversal Naproxen (Naproxen 250 Mg Tab) 250 mg PO TID [facility] Last Admin: 04/11/22 08:56 Dose: Not Given Ondansetron HCl (Ondansetron 4 Mg/2 Ml Vial) 4 mg IVP Q8HR PRN PRN Reason: Nausea And Vomiting Last Admin: 04/10/22 16:50 Dose: 4 mg Tamsulosin HCl (Tamsulosin 0.4 Mg Cap.Er.24h) 0.4 mg PO [facility] Last Admin: 04/10/22 20:58 Dose: 0.4 mg Past medical history to include: Hypertension, prostate disorder, B12 deficiency Social history: Lives at [facility]. His also listed the dementia unit. Patient smoked for about 25 years stopped about 37 years ago. Used to work for IT. Alcohol occasionally. Physical examination: VITAL SIGNS: 97.8, 94, 18, 140/72, 95% room air GENERAL: reclining in bed EYES: Pupils equal. Conjunctiva normal. HEENT: External appearance of nose and ears normal, oral cavity grossly normal. NECK: JVD not raised; masses not palpable. HEART: First and second heart sounds are normal; no edema. LUNGS: Respiratory rate normal; clear to auscultation. ABDOMEN: Soft, nontender, liver spleen not palpable, no masses palpable. PSYCH: Alert and oriented x3; mood and affect normal. MUSCULOSKELETAL:No Clubbing/cyanosis;muscles-grossly intact. Evidence of OA. Left lower extremity dressing over the abscess site. INVESTIGATIONS, reviewed in the clinical context: Wound culture: MSSA. April 10: White count 6.1 hemoglobin 12.6 platelets 23 progression 2.7 creatinine 0.74 ESR 24 White count 8.2 hemoglobin 14 platelets 235 sodium 133 potassium 3.9 creatinine 0.65 CRP 4 Pro-calcitonin 0.05 Assessment plan: -Abscess left lower extremity - injury about 5 weeks ago. had a course of doxycycline for 6 days. No major improvement. Now presented increasing local pain and surrounding cellulitis. Culture positive for MSSA. Pus drained on April [address] Mittal. Wound care per him. Follow with ID. IV Ancef. -BPH Proscar -Vitamin B12 deficiency Vitamin B12 -Essential hypertension Norvasc IV Ancef. Other medications to continue. Wound care per Dr. Mittal. Activity as tolerated. Dressing changed this morning.
[2022-04-11] MEDS: ONDANSETRON 4 MG/2 ML VIAL IVP PRN (16:20)
[2022-04-11] MEDS: LACTATED RINGERS 1,000 ML IV SCH (16:24)
[2022-04-11] MEDS: FINASTERIDE 5 MG TAB PO SCH (20:26)
[2022-04-11] MEDS: TAMSULOSIN 0.4 MG CAP.ER.24H PO SCH (20:26)
[2022-04-12 04:52] VITALS: RESP 16
--- NOTE | 2022-04-12 07:14 | P.PN ---
Subjective Progress Note Date: 04/10/22 Principal diagnosis: Left leg infected hematoma Patient is a 81-year-old male with a recent history of trauma to the left leg developing a swelling redness failing outpatient ordered by therapy concerning for infected hematoma. On today's evaluation that is 04/10/2022, the patient remains to be afebrile, patient pain to the left lower extremity has decreased in intensity, the patient denies chest pain shortness of breath or cough no abdominal pain no diarrhea Objective - Vital Signs Vital signs: Vital Signs Temp 98.6 F 04/10/22 11:13 Pulse 75 04/10/22 11:13 Resp 18 04/10/22 11:13 BP 141/75 04/10/22 11:13 Pulse Ox 96 04/10/22 11:13 FiO2 Intake & Output 04/09/22 04/10/22 04/10/22 18:59 06:59 18:59 Intake Total 100 200 Output Total 1 Balance 99 200 Weight 83.915 kg Intake: IV 100 200 Output: Estimated Blood Loss 1 Other: Voiding Method Toilet Toilet # Voids 3 1 - Exam GENERAL DESCRIPTION: An elderly male lying in bed in no distress RESPIRATORY SYSTEM: Unlabored breathing , decreased breath sounds at bases HEART: S1 S2 regular rate and rhythm , ABDOMEN: Soft , no tenderness EXTREMITIES: Left lower extremity is currently dressed there is no drainage on the dressing - Labs CBC & Chem 7: 04/10/22 05:48 04/10/22 05:48 Labs: Abnormal Lab Results - Last 24 Hours (Table) 04/10/22 04/10/22 Range/Units 05:48 05:48 RBC 4.09 L (4.30-5.90) m/uL Hgb 12.6 L (13.0-17.5) gm/dL Hct 37.2 L (39.0-53.0) % Lymphocytes # 0.8 L (1.0-4.8) k/uL Sodium 135 L (137-145) mmol/L Carbon Dioxide 21 L (22-30) mmol/L BUN 25 H (9-20) mg/dL Glucose 103 H (74-99) mg/dL Calcium 7.3 L (8.4-10.2) mg/dL Microbiology - Last 24 Hours (Table) 04/09/22 18:21 Gram Stain - Preliminary Leg - Left Wound Culture - Preliminary 04/09/22 18:20 Gram Stain - Preliminary Leg - Left Wound Culture - Preliminary 04/07/22 16:54 Anaerobic Culture - Preliminary Leg - Left 04/09/22 18:21 Anaerobic Culture - Preliminary Leg - Left 04/09/22 18:20 Anaerobic Culture - Preliminary Leg - Left 04/07/22 16:54 Gram Stain - Final Leg - Left Wound Culture - Final Staphylococcus aureus 04/07/22 14:06 Blood Culture - Preliminary Blood No Growth after 48 hours 04/07/22 14:06 Blood Culture - Preliminary Blood No Growth after 48 hours Assessment and Plan (1) Abscess of left leg Current Visit: Yes Status: Acute Code(s): L02.416 - CUTANEOUS ABSCESS OF LEFT LOWER LIMB SNOMED Code(s): 418638407 Plan: 1patient with the acute traumatic injury to the left lower extremity concerning for secondary cellulitis failing outpatient oral by therapy more likely from gram-positive skin gael less likely gram-negative infection 2-vascular surgery has evaluated the patient, patient is status post surgical drainage and per discussion with the vascular surgeon he did have a pelvic abscess which has been drained culture has been sent 3-patient initial cultures came back positive with MSSA we will discontinue vancomycin and cefepime start the patient on cefazolin 2 g every 8 hours Time with Patient: Less than 30
--- NOTE | 2022-04-12 07:15 | P.PN ---
Subjective Progress Note Date: 04/11/22 Principal diagnosis: Left leg infected hematoma Patient is a 81-year-old male with a recent history of trauma to the left leg developing a swelling redness failing outpatient ordered by therapy concerning for infected hematoma. On today's evaluation that is 04/11/2022, the patient continues to be afebrile, patient pain to the left lower extremity is controlled with current pain medication, the patient denies chest pain shortness of breath or cough no abdominal pain no diarrhea Objective - Vital Signs Vital signs: Vital Signs Temp 97.8 F 04/11/22 09:38 Pulse 94 04/11/22 09:38 Resp 18 04/11/22 09:38 BP 140/72 04/11/22 09:38 Pulse Ox 95 04/11/22 02:00 FiO2 Intake & Output 04/10/22 04/11/22 04/11/22 18:59 06:59 18:59 Intake Total 450 100 Balance 450 100 Intake: Intake, IV Titration 450 100 Amount Cefepime 2 gm In Sodium 100 Chloride 0.9% 100 ml @ 25 mls/hr IVPB Q12H [facility] Rx# :[id number] Lactated Ringers 1,000 ml 100 @ 20 mls/hr IV .Q24H [facility] Rx#:[id number] Vancomycin 1,500 mg In 250 Sodium Chloride 0.9% 250 ml @ 125 mls/hr IVPB Q12H [facility] Rx#:[id number] ceFAZolin 2 gm In Sodium 100 Chloride 0.9% 50 ml @ 100 mls/hr IVPB Q8HR [facility] Rx# :[id number] Other: Voiding Method Toilet Toilet Toilet - Exam GENERAL DESCRIPTION: An elderly male lying in bed in no distress RESPIRATORY SYSTEM: Unlabored breathing , decreased breath sounds at bases HEART: S1 S2 regular rate and rhythm , ABDOMEN: Soft , no tenderness EXTREMITIES: Left lower extremity is currently dressed there is no drainage on the dressing - Labs CBC & Chem 7: 04/10/22 05:48 04/10/22 05:48 Labs: Microbiology - Last 24 Hours (Table) 04/09/22 18:20 Gram Stain - Preliminary Leg - Left Wound Culture - Preliminary Presumptive Staph aureus 04/09/22 18:21 Gram Stain - Preliminary Leg - Left Wound Culture - Preliminary Presumptive Staph aureus 04/07/22 14:06 Blood Culture - Preliminary Blood No Growth after 72 hours 04/07/22 14:06 Blood Culture - Preliminary Blood No Growth after 72 hours Assessment and Plan (1) Abscess of left leg Current Visit: Yes Status: Acute Code(s): L02.416 - CUTANEOUS ABSCESS OF LEFT LOWER LIMB SNOMED Code(s): 532319359 Plan: 1patient with the acute traumatic injury to the left lower extremity concerning for secondary cellulitis failing outpatient oral by therapy more likely from gram-positive skin gael less likely gram-negative infection 2-vascular surgery has evaluated the patient, patient is status post surgical drainage and per discussion with the vascular surgeon he did have a pelvic abscess which has been drained culture has been sent 3-patient initial cultures came back positive with MSSA ,OR cultures also showing staph aureus patient continue with the cefazolin 2 g every 8 hours, in view of the extensive infection will benefit from short course of IV cefazolin on discharge for which a midline will be placed discussed with the caser Time with Patient: Less than 30
[2022-04-12] MEDS: ENOXAPARIN 40 MG/0.4 ML SYRINGE SQ SCH (08:43)
[2022-04-12] MEDS: CYANOCOBALAMIN 500 MCG TAB PO SCH (08:43)
[2022-04-12] MEDS: amLODIPine 5 MG TAB PO SCH (08:44)
[2022-04-12] MEDS: NAPROXEN 250 MG TAB PO SCH ×2 (08:44→17:09)
[2022-04-12 12:51] VITALS: BP 143/78; PULSE 87; TEMP 98.5
--- NOTE | 2022-04-12 17:01 | P.DS ---
Providers Date of admission: 04/07/22 17:59 Expected date of discharge: 04/12/22 Attending physician: Davide Lovell Consults: 04/08/22 10:32 Consult Physician Routine Consulting Provider: Sunshine Jett Consult Reason/Comments: Wound care and unknown rash Do you want consulting provider notified?: Already Contacted 04/08/22 10:33 Consult Physician Routine Consulting Provider: Wilfredo Almaraz Consult Reason/Comments: possible I and D on Left Knee Do you want consulting provider notified?: Yes Primary care physician: [facility] Course: Chief Complaint: Left leg wound This is a pleasant 81-year-old patient who follows with visiting physicians Dr. Armstrong. Patient is a resident of [facility]. Chronic stable medical conditions include hypertension, BPH, B12. About 5 weeks ago patient is helping his son unload stuff from his truck. He put the stuff on the ground. When he turned around he bumped his left leg on the same. There was a cut there. Subsequently medical. He did have a visit. By his family doctor and put him on doxycycline which took for 6 days. It progressed to get worse. Patient developed a swelling with redness of the left lower extremity. No fever no chills. Appetite has been fair. No change in bowel pattern. He did have a visit to the urgent care with attempt to drainage not much was obtained. Recent ultrasound was negative for DVT. Admitted with what appears to be left leg abscess/infected hematoma. Surrounding cellulitis. On IV cefepime and vancomycin. 04/09/2022: Sitting up in bed. Some local pain present. Ending surgery later this afternoon. On IV antibiotics include vancomycin and cefepime. Patient's son Scottie da silva. 04/10/2022: Left leg abscess was drained by Dr. Mittal yesterday. Large pocket of pus was removed. Cultures pending. Wound culture from the is growing MSSA. Antibiotics switched over to IV Ancef. Had his breakfast. Told to sit up in a chair. 04/11/2022: Pain well controlled. Eating well. Did walk in the hallway. Dressing change per Dr. Mittal. On IV Ancef. April 12/2022: Doing well. Eating well. Discussed with the patient. Midline placed today. DC all with IV Ancef. Discussed with ID. We'll follow up with Dr. Mittal and ID. Case management also discussed with. No pain. Discussion and discharge planning more than 35 minutes Past medical history to include: Hypertension, prostate disorder, B12 deficiency Social history: Lives at [facility]. His also listed the dementia unit. Patient smoked for about 25 years stopped about 37 years ago. Used to work for IT. Alcohol occasionally. Physical examination: VITAL SIGNS: 98.5, 87, 16, 143 with 78, 94% room air GENERAL: Sitting up, comfortable EYES: Pupils equal. Conjunctiva normal. HEENT: External appearance of nose and ears normal, oral cavity grossly normal. NECK: JVD not raised; masses not palpable. HEART: First and second heart sounds are normal; no edema. LUNGS: Respiratory rate normal; clear to auscultation. ABDOMEN: Soft, nontender, liver spleen not palpable, no masses palpable. PSYCH: Alert and oriented x3; mood and affect normal. MUSCULOSKELETAL:No Clubbing/cyanosis;muscles-grossly intact. Evidence of OA. Left lower extremity dressing over the abscess site. INVESTIGATIONS, reviewed in the clinical context: Wound culture: MSSA. April 10: White count 6.1 hemoglobin 12.6 platelets 23 progression 2.7 creatinine 0.74 ESR 24 White count 8.2 hemoglobin 14 platelets 235 sodium 133 potassium 3.9 creatinine 0.65 CRP 4 Pro-calcitonin 0.05 Assessment plan: -Abscess left lower extremity - injury about 5 weeks ago. had a course of doxycycline for 6 days. No major improvement. Now presented increasing local pain and surrounding cellulitis. Culture positive - MSSA. Pus drained on April [address] Mittal. Wound care per him. Follow with FÁTIMA. FIGUEROA Scott outpatient.. -BPH Proscar -Vitamin B12 deficiency Vitamin B12 -Essential hypertension Norvasc Disposition: Home Plan - Discharge Summary New Discharge Prescriptions: New ceFAZolin [Kefzol] 2 gm IVP Q8HR #42 each Naproxen [Naprosyn] 250 mg PO TID PRN #30 tab PRN Reason: Pain Continue amLODIPine [Norvasc] 5 mg PO DAILY Finasteride [Proscar] 5 mg PO HS Cyanocobalamin (Vitamin B-12) [Vitamin B-12] 1,000 mcg PO DAILY Tamsulosin [Flomax] 0.4 mg PO HS Vit C/E/Zn/Coppr/Lutein/Zeaxan [Preservision Areds 2 Softgel] 1 cap PO BID Discontinued Doxycycline Hyclate 100 mg PO BID Discharge Medication List Cyanocobalamin (Vitamin B-12) [Vitamin B-12] 1,000 mcg PO DAILY 04/07/22 [History] Finasteride [Proscar] 5 mg PO HS 04/07/22 [History] Tamsulosin [Flomax] 0.4 mg PO HS 04/07/22 [History] Vit C/E/Zn/Coppr/Lutein/Zeaxan [Preservision Areds 2 Softgel] 1 cap PO BID 04/07/22 [History] amLODIPine [Norvasc] 5 mg PO DAILY 04/07/22 [History] Naproxen [Naprosyn] 250 mg PO TID PRN #30 tab 04/12/22 [Rx] ceFAZolin [Kefzol] 2 gm IVP Q8HR #42 each 04/12/22 [Rx] Follow up Appointment(s)/Referral(s): Home Health,[facility] [NON-STAFF] - 1 Week [facility],Infusion [NON-STAFF] - 1 Week Arthur Armstrong MD [Primary Care Provider] - 1-2 days (PATIENT WANTS TO SCHEDULE OWN APPOINTMENT.) Wilfredo Almaraz MD [STAFF PHYSICIAN] - 04/13/22 11:30 am Sunshine Jett MD [STAFF PHYSICIAN] - 04/24/22 2:15 pm () Patient Instructions/Handouts: Naproxen (By mouth), Abscess (GEN)
== END 2022-04-12 17:10 | disposition home health service (06) | DRG 603 ==
LOC: EC 12:23 → 5NMEDONC 17:59
PROVIDERS: ADMIT Hospitalist; ATTEND Hospitalist
PROC: 0Y9J0ZX Drainage of Left Lower Leg, Open Approach, Diagnostic (ICD-10-PCS; principal; 2022-04-10)
DX: L02.416 Cutaneous abscess of left lower limb (principal); I10 Essential (primary) hypertension; S81.812A Laceration without foreign body, left lower leg, initial encounter; B95.61 Methicillin susceptible Staphylococcus aureus infection as the cause of diseases classified elsewhere; M79.89 Other specified soft tissue disorders; N40.0 Benign prostatic hyperplasia without lower urinary tract symptoms; E53.8 Deficiency of other specified B group vitamins; S80.12XA Contusion of left lower leg, initial encounter; W22.8XXA Striking against or struck by other objects, initial encounter; Z28.310 Unvaccinated for COVID-19; Z87.891 Personal history of nicotine dependence; Z79.899 Other long term (current) drug therapy
CPT/HCPCS: 36410; 36415; 76937; 80048; 80053; 80202; 82565; 83605; 84145; 85025; 85652; 86140; 87040; 87070; 87075; 87077; 87186; 87205; 96365; 96366; 96367; 99285

== ENCOUNTER → 2022-09-18 | Day surgery (SDC) | payer MEDICARE, BC ==
[2022-09-17 14:05] VITALS: BMI 23.7
[~2022-09-18] MED LIST: LACTATED RINGERS 1,000 ML IV ONE; LIDOCAINE 1% (10MG/ML) FOR IV START INTRADERMA ONE; PROPOFOL 10 MG/ML 20 ML VIAL IV ONE
[2022-09-18 12:58] VITALS: RESP 16; TEMP 97.5
--- NOTE | 2022-09-18 13:46 | P.PCN ---
Date of Procedure: 09/18/22 Procedure(s) Performed: BRIEF HISTORY: Patient is a 81-year-old pleasant male scheduled for an elective colonoscopy as a part of evaluation of screening for colon cancer/ prior history of colon polyps. He stated he had a colonoscopy done in the [facility] about 2 years ago and was noted to have multiple colon polyps PROCEDURE PERFORMED: Colonoscopy with snare polypectomy. PREOPERATIVE DIAGNOSIS: Screening for colon cancer/History of colon polyps. IV sedation per Anesthesia. PROCEDURE: After informed consent was obtained, the patient, was brought into the endoscopy unit. IV sedation was administered by Anesthesia under continuous monitoring. Digital rectal examination was normal. Initially the Olympus CF-160 flexible video colonoscope was then inserted in the rectum, gradually advanced into the cecum without any difficulty. Careful examination was performed as the scope was gradually being withdrawn. Ileocecal valve and the appendiceal orifice were visualized and appeared normal. Prep was excellent. Mucosa of the cecum, appeared normal. In the ascending colon there were 2 polyps measuring 1 cm in size and 5 mm removed by snare polypectomy. In the hepatic flexure there was a 1 cm flat polyp removed by snare polypectomy. Also there was a 3 cm linear polyp identified at the site of previous polypectomy. There was tattooing noted. This polyp was removed in a piecemeal fashion. In the descending colon there was a 5 mm polyp removed by snare polypectomy. In the sigmoid: There was a 2 cm flat polyp removed by snare polypectomy. Scattered sigmoid diverticulosis seen. Rest of the, sigmoid colon, and rectum appeared normal. Retroflexion was performed in the rectum and no lesions were seen. The patient tolerated the procedure well. IMPRESSION: 5 mm and 1 cm ascending colon polyp status post polypectomy 1 cm and 3 cm linear polyp in the hepatic flexure at the site of previous polypectomy status post piecemeal snare polypectomy 2 cm flat; polyp status post polypectomy 5 mm descending colon polyp status post polypectomy Scattered sigmoid diverticulosis RECOMMENDATIONS: Findings of this examination were discussed with the patient as well as his family. He will ll be seen in office in 2 weeks..the plan a repeat colonoscopy in one year based the biopsy
[2022-09-18 14:11] VITALS: BP 160/75; PULSE 63
== END ==
LOC: ORWHC2ENDO 12:17
PROVIDERS: ATTEND Internal Medicine Gastroenterology
DX: Z12.11 Encounter for screening for malignant neoplasm of colon (principal); D12.2 Benign neoplasm of ascending colon; D12.3 Benign neoplasm of transverse colon; D12.4 Benign neoplasm of descending colon; K57.30 Diverticulosis of large intestine without perforation or abscess without bleeding; I10 Essential (primary) hypertension; N40.0 Benign prostatic hyperplasia without lower urinary tract symptoms; H35.30 Unspecified macular degeneration; Z79.899 Other long term (current) drug therapy; Z98.49 Cataract extraction status, unspecified eye; Z98.890 Other specified postprocedural states
CPT/HCPCS: 45385; 88305; J2704

== ENCOUNTER → 2023-02-21 | Outpatient (CLI) | payer MEDICARE, BC ==
[2023-02-21 11:33] LABS: African American GFR (CKD) >90 (>60 ml/min/1.73 sqM); Blood Urea Nitrogen 10 mg/dL (9-20); Non-African American GFR(CKD) 90 (>60 ml/min/1.73 sqM)
--- NOTE | 2023-02-21 13:38 | CT ---
EXAMINATION TYPE: CT chest wo/w con CT DLP: 1176 mGycm, Automated exposure control for dose reduction was used. DATE OF EXAM: 02/21/2023 12:04 PM COMPARISON: None CLINICAL INDICATION:Male, 82 years old with history of R91.8 OTHER NONSPECIFIC ABNORMAL FINDING OF R9 3.89; PHH, Abn CXR TECHNIQUE: Multiple axial images were obtained through the chest before and after the administration 100 cc of Isovue-300 intravenously . Coronal and sagittal reformats reviewed. FINDINGS: LUNGS/ PLEURA: No pleural effusion or pneumothorax. Bilateral lower lobe linear scarring. Right upper lobe spiculated 4.4 x 3.7 cm pulmonary mass with reticular groundglass opacity extending towards the hilum. AIRWAY: Patent and unremarkable.. HEART: Size within normal limits. No pericardial effusion. Mild coronary arterial calcifications. Aor tic valvular calcifications. MEDIASTINUM: Enlarged centrally necrotic pretracheal space and right hilar lymph nodes. The pretrache al lymph node measures 2.4 cm the right hilar lymph node measures 3.0 cm. There is abutment of the ri ght upper lobe pulmonary artery VASCULATURE: No aortic aneurysm. Ectasia of the ascending thoracic aorta measuring up to 3.9 cm. Ath erosclerotic calcification of the aorta and its branches. MUSCULOSKELETAL: No acute osseous abnormalities. Increased thoracic kyphosis. Mild multilevel degener ative disc disease. Destructive lytic lesion involving the T10 vertebral body measuring up to 2.1 cm. SOFT TISSUES/LYMPH NODES: Unremarkable. LOWER NECK: No significant findings. UPPER ABDOMEN: Small hiatal hernia. IMPRESSION: Right upper lobe spiculated 4.2 cm mass which is most consistent with primary lung malignancy until p roven otherwise. Findings most consistent with metastasis including mediastinal and right hilar adeno sofia and destructive lytic T10 vertebral body osseous lesion. Further workup is recommended.
== END | disposition home or self-care (01) ==
LOC: RADCTMAIN 10:39
PROVIDERS: ATTEND Family Medicine
DX: R91.8 Other nonspecific abnormal finding of lung field (principal); R93.89 Abnormal findings on diagnostic imaging of other specified body structures
CPT/HCPCS: 82565; 84520; 71270; 36415; Q9967

== ENCOUNTER → 2023-03-04 | Outpatient (CLI) | payer MEDICARE, BC ==
--- NOTE | 2023-03-05 23:19 | MR ---
EXAMINATION TYPE: MR brain wo/w con DATE OF EXAM: 03/04/2023 10:28 AM CLINICAL INDICATION:Male, 82 years old with history of C34.10 LUNG CANCER, Lung cancer. COMPARISON: None TECHNIQUE: Multi planar, multi sequence imaging was performed through the brain including: T1, T2, In version recovery, susceptibility weighted imaging and gradient echo imaging and Diffusion weighted im aging. The patient was then given intravenous contrast and multi planar, T1 fat-saturation images wer e obtained. IV Contrast: 8 cc Gadavist FINDINGS: Bilateral choroid plexus intracranial mass. Ventricular dilation in proportion to cerebral atrophy. D iffusion-weighted imaging shows no evidence of restricted diffusion to suggest acute/subacute infarct . Intracranial arterial flow voids are maintained. Midline structures show no abnormality. Scattered foci of high T2 signal intensity are seen within the periventricular white matter. The susceptibility weighted images demonstrates blooming artifact compatible with microhemorrhage within the right post erior frontal lobe. After administration of gadolinium, no abnormal enhancement is seen. The bone marrow signal is within normal limits. Paranasal sinuses and mastoid air cells: No significant paranasal sinus disease. Visualized orbits: Bilateral aphakia. IMPRESSION: 1. No evidence of intracranial mass, acute/subacute infarct, or abnormal enhancement. No evidence for metastatic disease. 2. Nonspecific white matter changes, likely related to small vessel ischemic disease
== END | disposition home or self-care (01) ==
LOC: RADMRIMAIN 09:30
PROVIDERS: ATTEND Internal Medicine Hematology & Oncology
DX: C34.10 Malignant neoplasm of upper lobe, unspecified bronchus or lung (principal); R90.82 White matter disease, unspecified
CPT/HCPCS: 70553; A9585

== ENCOUNTER → 2023-03-08 | Outpatient (CLI) | payer MEDICARE, BC ==
--- NOTE | 2023-03-10 11:53 | PE ---
EXAMINATION TYPE: PET CT fusion skull to thigh DATE OF EXAM: 03/08/2023 CLINICAL INDICATION:Male, 82 years old with history of MALIGNANT NEOPLASM OF UPPER LOBE, UNSP BRONCHU S OR LUNG; TECHNIQUE: Following the intravenous administration of 12.8 mCi of F-18 FDG, whole body images are performed from the skull base to the midthigh. Images are reviewed on the computer in the coronal, a xial, and sagittal planes. Reconstructed rotating images are created on independent workstation and reviewed on the computer. A non-contrast CT is performed in conjunction with the PET scan. Glucose level 105 mg/dL CT DLP: 498 mGycm, Automated exposure control for dose reduction was used. COMPARISON: CT 02/21/2023, PET/CT None, FINDINGS: Mediastinal SUV mean is 1.4. Hepatic parenchyma SUV mean is 2.2. SKULL BASE AND NECK: No suspicious radiotracer activity. CHEST, MEDIASTINUM, AND HILAR REGION: Abnormal FDG activity within the thorax. Examples include: * Left upper lung spiculated mass measuring 4.1 x 3.9 cm Max SUV 8.7. * Right low paratracheal lymph nodes extending along the right main bronchus measuring 2.8 cm SUV 6. 0. ABDOMEN AND PELVIS: No suspicious radiotracer activity. MUSCULOSKELETAL STRUCTURES: Scattered metastatic FDG avid foci including * Left rib 2 max SUV 9.8 * Left rib 4 max SUV 3.4. * S1 vertebral body max SUV 7.1. * L5 vertebral body max SUV 4.3. * T10 vertebral body max SUV 10.3 T5 vertebral body max SUV 9.[address]: Atherosclerosis at the carotid bifurcations. Moderate coronary artery cusp patient's. Aorti c valve leaflet calcifications. Scattered colonic diverticula. Brachytherapy beads in the prostate gl and. Bilateral fat-containing inguinal hernias. IMPRESSION: Base compatible with right upper lung primary malignancy with metastatic disease to the mediastinum a nd osseous structures.
== END | disposition home or self-care (01) ==
LOC: RADPETMAIN 10:04
PROVIDERS: ATTEND Internal Medicine Hematology & Oncology
DX: C34.10 Malignant neoplasm of upper lobe, unspecified bronchus or lung (principal)
CPT/HCPCS: 78815; A9552

== ENCOUNTER → 2023-07-26 | Outpatient (CLI) | payer MEDICARE, BC ==
[2023-07-26 13:05] LABS: African American GFR (CKD) >90 (>60 ml/min/1.73 sqM); Blood Urea Nitrogen 16 mg/dL (9-20); Non-African American GFR(CKD) 85 (>60 ml/min/1.73 sqM)
--- NOTE | 2023-07-26 15:26 | CT ---
EXAMINATION TYPE: CT ChestAbdPelvis w con DATE OF EXAM: 07/26/2023 COMPARISON: PET/CT 03/08/2023 HISTORY: 82-year-old male C34.10 LUNG CA, I10 HTN, Z71.3 DIETARY COUNSELING, lung CA TECHNIQUE: Contiguous axial scanning of the chest, abdomen, and pelvis performed with IV Contrast, pa tient injected with 100 ml mL of Isovue 300. Delayed images through the kidneys were obtained. Hunt l/sagittal reconstructions performed. CT DLP: 1630 mGycm Automated exposure control for dose reduction was used. FINDINGS: CHEST: The heart is borderline enlarged without pericardial effusion. Mild to moderate aortic valvular calci fications are present. Ascending aorta borderline aneurysmal at 4.0 cm. Conventional vessel branching anatomy. Previous precarinal lymph node now smaller 9 mm versus 2.8 cm, previously. Previous right hilar node now small at 9 mm previously 2.0 cm, previously. No thoracic adenopathy by size criteria. There is new volume loss and consolidation along the right suprahilar region and medial right upper l edgardo as well as the medial right lower lobe, suspected post radiation therapy change. New patchy subpleural opacity in the left upper lobe at the site of previous left lateral second rib lesion. Possible post radiation therapy change here as well. There has been some new sclerosis at the site of previous lytic disease of the second rib. The patient's right upper lobe spiculated mass is smaller now 3.4 x 1.6 cm versus 4.1 x 2.9 cm, previ ously. No pleural effusion. ABDOMEN: Small hiatal hernia. No focal liver lesion or biliary ductal dilatation. Portal venous system is patent. Gallbladder, adrenal glands, kidneys, spleen, and pancreas within normal limits. No dilated small bowel, free fluid, or free air. No mesenteric or retroperitoneal adenopathy. Mild to moderate stool burden. Normal appendix. Sigmoid diverticulosis. No pericolonic inflammatory c hange. Pelvis: Mild circumferential bladder wall thickening may be chronic for the patient. Some brachytherapy seeds in the prostate gland which measures 5.2 cm wide. Pelvic phleboliths. No abnormal fluid collection i n the pelvis or pelvic lymphadenopathy. Bones: There has been interval treatment response with previous lytic areas showing healing sclerosis. Sites of suspected treated osseous metastases are located at the left lateral second rib, T5 and T10 vertebral bodies, L4, L5, and S1 vertebral bodies. However, a few lytic areas are also noted now, for example, posterior right iliac bone, left iliac mahad ne adjacent to the SI joint, small area anterior L2 and superior posterior L1 vertebral bodies. Also, left posterolateral 10th rib. Underlying dish with accentuated midthoracic kyphosis. Normal variant sternal foramen. IMPRESSION: 1. THERE SEEMS TO BE MIXED RESPONSE BUT OVERALL POSITIVE. PREVIOUS OSSEOUS METASTASES SEEN ON PET/CT OF 03/08/2023 NOW SHOW HEALING SCLEROSIS. HOWEVER, A FEW NEW LYTIC AREAS ARE NOW DEMONSTRATED, SUCH RIGHT AND LEFT ILIAC BONES, L1 AND L2 VERTEBRAL BODIES, AND THE LEFT POSTEROLATERAL 10TH RIB. 2. INTERVAL RESOLUTION OF PREVIOUS MEDIASTINAL AND RIGHT HILAR ADENOPATHY. THE PATIENT'S SPICULATED R IGHT UPPER LOBE MASS IS SMALLER AT 3.4 CM VERSUS 4.1 CM, PREVIOUSLY. 3. NEW OPACITY ALONG THE MEDIAL RIGHT LUNG PROBABLY POST RADIATION THERAPY CHANGE. NEW SUBPLEURAL [place] ADJACENT TO THE LEFT SECOND RIB AT THE SITE OF PREVIOUS OSSEOUS METASTASIS MAY REPRESENT POST RA DIATION THERAPY CHANGE WELL. CORRELATE FOR THE RADIATION PORT.
== END | disposition home or self-care (01) ==
LOC: RADCTMAIN 12:12
PROVIDERS: ATTEND Internal Medicine Hematology & Oncology
DX: R91.8 Other nonspecific abnormal finding of lung field (principal); M89.8X8 Other specified disorders of bone, other site; C34.10 Malignant neoplasm of upper lobe, unspecified bronchus or lung; I10 Essential (primary) hypertension; Z71.3 Dietary counseling and surveillance
CPT/HCPCS: 82565; 84520; 71260; 74177; 36415; Q9967

== ENCOUNTER → 2023-09-26 | Outpatient (CLI) | payer MEDICARE, BC ==
--- NOTE | 2023-09-29 14:01 | PE ---
EXAMINATION TYPE: PET CT fusion skull to thigh DATE OF EXAM: 09/26/2023 COMPARISON: CT chest abdomen pelvis 07/26/2023 Prior PET/CT: 03/08/2023 HISTORY: Lung cancer TECHNIQUE: Following the intravenous administration of 8.5 mCi of F-18 FDG, whole body images are pe rformed from the skull base to the midthigh. Images are reviewed on the computer in the coronal, axi al, and sagittal planes. Reconstructed rotating images are created on independent workstation and re viewed on the computer. A localization and attenuation correction CT is performed in conjunction wi th the PET scan. DLP: 666.01 mGycm SCAN: Subsequent Blood glucose: 111 mg/dL Average Mediastinum SUV: 1.93 Average Liver SUV: 2.63 FINDINGS: NECK: No abnormal uptake THORAX: There is a focus of uptake within the posterior right upper lung field. Image 86, SUV 8.61. A n adjacent area of uptake image 90 has an SUV of 12.12. Findings correlate with the density at the up per lung field. Previous SUV 6.64. No suspicious uptake within the area of pleural thickening lateral left upper lung field. SUV example 2.11. No suspicious mediastinal or hilar uptake. Previous mediastinal uptake not evident. ABDOMEN: No abnormal uptake PELVIS: No abnormal uptake within intraperitoneal region. OSSEOUS STRUCTURES: There is a new focus of radiotracer within the left aspect of a cervical vertebra l body. Image 63, SUV 9.82. There is a new focus of radiotracer within the left aspect of the T2 vertebral body with an SUV of 20 .04. Image 76. There is radiotracer within the lamina of the region of T4 on the right. SUV 11.82, image 77. There is new uptake within the lateral right rib. Image 126, SUV 12.75. There is new uptake within th e posterior lateral left lower rib. Image 156, SUV 19.39. There is new intense activity within the posterior L1 vertebral body at 2 foci. Image 157, left SUV 1 6.53, right SUV 14.53. There is new uptake within the anterior lateral upper lumbar spine, image 171, SUV 21.99. There is new abnormal uptake within the left medial iliac wing, SUV 28.02, image 210 and within the r ight posterior ilium, image 214, SUV 16.38. There is new intense uptake within the left pubic symphys is, image 252 SUV 26.87. Some new lesser uptake is within the right pubic symphysis, image 251, SUV [address]: Density at the right upper lobe correlates with the area of uptake. Suspicious uptak e within the right suprahilar mediastinum are not evident. There is some increased density in this re gion. Some mild compressive atelectasis may be within the left lung base. Osseous metastases are evid ent correlating with the PET scan. COMPARISON: Previous left lateral second rib uptake not evident on the current exam. Previous lower t horacic spine uptake present. Previous sacral uptake not identified. IMPRESSION: 1. Increasing SUV within the left upper lobe lung nodule. 2. Multiple new thoracic and lumbar vertebral body metastatic lesions. 3. New posterior iliac metastatic lesion and new bilateral pubic symphysis metastatic lesions. New bi lateral rib lesions. 4. There appears to be resolution of prior osseous metastasis.
== END | disposition home or self-care (01) ==
LOC: RADXRMAIN 08:07
PROVIDERS: ATTEND Internal Medicine Hematology & Oncology
DX: C79.51 Secondary malignant neoplasm of bone (principal); C34.11 Malignant neoplasm of upper lobe, right bronchus or lung; M89.9 Disorder of bone, unspecified
CPT/HCPCS: 78815; A9552

== ENCOUNTER 2023-10-30 08:41 | Emergency (ER) | payer BC, MEDICARE ==
--- NOTE | 2023-10-30 09:39 | ED ---
General Adult HPI - General Chief complaint: Weakness Stated complaint: Weakness Time Seen by Provider: 10/30/23 08:59 Source: patient, family Mode of arrival: ambulatory Limitations: no limitations - History of Present Illness Initial comments: Dictation was produced using [employer] dictation software. please excuse any grammatical, word or spelling errors. Chief Complaint: 82-year-old male presents to the ER for weakness and poor appetite History of Present Illness: Patient is 82-year-old male for the last 2 weeks he was transition to a different cancer medication by his oncologist. Patient presents with her his son. Son states they called the oncologist office however did not get to respond. For the last several days he has been having poor appetite and generalized weakness. Patient also feels fatigued. Denies any abdominal pain. No chest pain. Denies any fever or constitutional symptoms. Patient states that his symptoms began immediately after he started the new medications. 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 The ROS documented in this emergency department record has been reviewed and confirmed by me. Those systems with pertinent positive or negative responses have been documented in the HPI. All other systems are other negative and/or noncontributory. - Related Data Home Medications Medication Instructions Recorded Confirmed Finasteride [Proscar] 5 mg PO DAILY 04/07/22 10/30/23 Tamsulosin [Flomax] 0.8 mg PO DAILY 04/07/22 10/30/23 Vit C/E/Zn/Coppr/Lutein/Zeaxan 1 cap PO BID 04/07/22 10/30/23 [Preservision Areds 2 Softgel] Acetaminophen [Tylenol Extra 1,000 mg PO Q6H PRN 10/30/23 10/30/23 Strength] Ibuprofen [Motrin Ib] 400 mg PO Q6H PRN 10/30/23 10/30/23 Ondansetron [Zofran] 4 mg PO DAILY PRN 10/30/23 10/30/23 amLODIPine [Norvasc] 5 mg PO HS 10/30/23 10/30/23 Allergies Allergy/AdvReac Type Severity Reaction Status Date / Time No Known Allergies Allergy Verified 10/30/23 10:30 Review of Systems ROS Statement: Those systems with pertinent positive or pertinent negative responses have been documented in the HPI. ROS Other: All systems not noted in ROS Statement are negative. Past Medical History Past Medical History: Cancer, Hypertension, Prostate Disorder Additional Past Medical History / Comment(s): R lung cancer and possible L lung cancer, hx colon polyps, had admission Mar 2022 for abscess and cellulitis to left leg, bph History of Any Multi-Drug Resistant Organisms: None Reported Past Surgical History: Hernia Repair Additional Past Surgical History / Comment(s): michel inguinal hernia repairsl,michel cataracts Past Anesthesia/Blood Transfusion Reactions: No Reported Reaction Additional Past Anesthesia/Blood Transfusion Reaction / Comment(s): no hx blood transfusion Past Psychological History: No Psychological Hx Reported Smoking Status: Former smoker Past Alcohol Use History: Rare - Past Family History Mother Family Medical History: COPD Additional Family Medical History / Comment(s): Smoker General Exam - General Exam Comments Initial Comments: PHYSICAL EXAM: General Impression: Alert and oriented x3, not in acute distress HEENT: Normocephalic atraumatic, extra-ocular movements intact, pupils equal and reactive to light bilaterally, mucous membranes moist. Cardiovascular: Heart regular rate and rhythm Chest: Able to complete full sentences, no retractions, no tachypnea Abdomen: abdomen soft, non-tender, non-distended, no organomegaly Musculoskeletal: Pulses present and equal in all extremities, no peripheral edema Motor: no focal deficits noted Neurological: CN II-XII grossly intact, no focal motor or sensory deficits noted Skin: Intact with no visualized rashes Psych: Normal affect and mood Limitations: no limitations Course Vital Signs 10/30/23 10/30/23 10/30/23 08:54 10:54 11:37 Temperature 97.7 F Pulse Rate 90 80 81 Respiratory 18 18 18 Rate Blood Pressure 100/55 113/62 113/58 O2 Sat by Pulse 96 96 96 Oximetry EKG Findings - EKG Comments: EKG Findings:: My EKG interpretation: Ventricular rate 85, sinus rhythm,. 157, cures 83, QTc 451. No SC prolongation, no QTC prolongation, no ST or T-wave changes noted. Overall, this EKG is unremarkable Medical Decision Making - Medical Decision Making Was pt. sent in by a medical professional or institution (, PA, [employer], urgent care, hospital, or [place] health care facility...) When possible be specific @ -No Did you speak to anyone other than the patient for history (EMS, parent, family, police, friend...)? What history was obtained from this source @ -No Did you review nursing and triage notes (agree or disagree)? Why? @ -I reviewed and agree with nursing and triage notes Were old charts reviewed (outside hosp., previous admission, EMS record, old EKG, old radiological studies, urgent care reports/EKG's, [place] health care facility records)? Report findings @ -No old charts were reviewed Differential Diagnosis (chest pain, altered mental status, abdominal pain women, abdominal pain men, vaginal bleeding, musculoskeletal, weakness, fever, dyspnea, syncope, headache, dizziness, GI bleed, back pain, seizure, CVA, palpatations, mental health)? @ -Differential Weakness: Hypoglycemia, shock, sepsis, hyponatremia, anemia, infection, DC, ETOH, adverse medicine reaction, overdose, stroke, this is not meant to be an all-inclusive list. EKG interpreted by me (3pts min.). @ -None done X-rays interpreted by me (1pt min.). @ -None done CT interpreted by me (1pt min.). @ -None done U/S interpreted by me (1pt. min.). @ -None done What testing was considered but not performed or refused? (CT, X-rays, U/S, labs)? Why? @ -None What meds were considered but not given or refused? Why? @ -None Did you discuss the management of the patient with other professionals (professionals i.e. , PA, [employer], lab, RT, psych nurse, social service technician, attorney lawyer, teacher, tank officer, dependency case manager)? Give summary @ -Case discussed with Piotr who is a midlevel provider for Dr. Almanzar's office. States that patient can hold his medications for the time being. And to follow-up tomorrow. Was smoking cessation discussed for >3mins.? @ -No Was critical care preformed (if so, how long)? @ -No Were there social determinants of health that impacted care today? How? (Homelessness, low income, unemployed, alcoholism, drug addiction, transportation, low edu. Level, literacy, decrease access to med. care, correction, rehab)? @ -No Was there de-escalation of care discussed even if they declined (Discuss DNR or withdrawal of care, Hospice)? DNR status @ -No What co-morbidities impacted this encounter? (DM, HTN, Smoking, COPD, CAD, Cancer, CVA, ARF, Chemo, Hep., AIDS, mental health diagnosis, sleep apnea, morbid obesity)? @ -None Was patient admitted / discharged? Hospital course, mention meds given and route, prescriptions, significant lab abnormalities, going to OR and other pertinent info. @ -82-year-old male with poor appetite, generalized weakness presents to the ER. Patient has history of lung cancer takes cancer medications. Vital signs upon arrival are within acceptable limits. Patient well-appearing at the bedside. Laboratory evaluation shows normal CBC. Metabolic panel shows sodium 127. Calcium is 6.8. Corrected calcium is diminished. Patient given IV fluids and parenteral calcium. Disposition options were discussed. Patient would like to be discharged. He has an appoint with his oncologist tomorrow. Patient given return precautions. Undiagnosed new problem with uncertain prognosis? @ -No Drug Therapy requiring intensive monitoring for toxicity (Heparin, Nitro, Insulin, Cardizem)? @ -No Were any procedures done? @ -No Diagnosis/symptom? Acute, or Chronic, or Acute on Chronic? Uncomplicated (without systemic symptoms) or Complicated (systemic symptoms)? @ -Generalized weakness Side effects of treatment? @ -No Exacerbation, Progression, or Severe Exacerbation? @ -No Poses a threat to life or bodily function? How? (Chest pain, USA, DC, pneumonia, PE, COPD, DKA, ARF, appy, cholecystitis, CVA, Diverticulitis, Homicidal, Suicidal, threat to staff... and all critical care pts) @ -No - Lab Data Result diagrams: 10/30/23 09:38 10/30/23 09:38 Lab Results 10/30/23 10/30/23 10/30/23 Range/Units 09:38 09:38 09:38 WBC 5.7 (3.8-10.6) k/uL RBC 4.06 L (4.30-5.90) m/uL Hgb 11.7 L (13.0-17.5) gm/dL Hct 33.5 L (39.0-53.0) % MCV 82.5 (80.0-100.0) fL MCH 28.8 (25.0-35.0) pg MCHC 34.9 (31.0-37.0) g/dL RDW 15.3 (11.5-15.5) % Plt Count 154 (150-450) k/uL MPV 7.9 Neutrophils % (Manual) 80 % Band Neuts % (Manual) 3 % Lymphocytes % (Manual) 5 % Monocytes % (Manual) 12 % Neutrophils # (Manual) 4.70 (1.3-7.7) k/uL Lymphocytes # (Manual) 0.29 L (1.0-4.8) k/uL Monocytes # (Manual) 0.68 (0-1.0) k/uL Nucleated RBCs 0 (0-0) /100 WBC Differential Comment RBC Morphology Normal Sodium 127 L (137-145) mmol/L Potassium 4.0 (3.5-5.1) mmol/L Chloride 103 (98-107) mmol/L Carbon Dioxide 20 L (22-30) mmol/L Anion Gap 4 mmol/L BUN 19 (9-20) mg/dL Creatinine 0.68 (0.66-1.25) mg/dL Est GFR (CKD-EPI)AfAm >90 (>60 ml/min/1.73 sqM) Est GFR (CKD-EPI)NonAf 89 (>60 ml/min/1.73 sqM) Glucose 111 H (74-99) mg/dL Plasma Lactic Acid Binu 0.9 (0.7-2.0) mmol/L Calcium 6.8 L (8.4-10.2) mg/dL Magnesium 2.3 (1.6-2.3) mg/dL Total Bilirubin 0.9 (0.2-1.3) mg/dL AST 63 H (17-59) U/L ALT 123 H (4-49) U/L Alkaline Phosphatase 115 (38-126) U/L Total Protein 5.4 L (6.3-8.2) g/dL Albumin 2.6 L (3.5-5.0) g/dL Disposition Clinical Impression: Generalized weakness Disposition: HOME SELF-CARE Condition: Fair Is patient prescribed a controlled substance at d/c from ED?: No Referrals: Arthur Armstrong MD [Primary Care Provider] - 1-2 days Time of Disposition: 12:11
[2023-10-30 09:51] VITALS: RESP 18; TEMP 97.7
[2023-10-30 10:12] LABS: ALT 123 U/L (4-49); AST 63 U/L (17-59); African American GFR (CKD) >90 (>60 ml/min/1.73 sqM); Albumin 2.6 g/dL (3.5-5.0); Alkaline Phosphatase 115 U/L (38-126); Anion Gap 4 mmol/L; Blood Urea Nitrogen 19 mg/dL (9-20); Calcium 6.8 mg/dL (8.4-10.2); Carbon Dioxide 20 mmol/L (22-30); Chloride 103 mmol/L (98-107); Glucose 111 mg/dL (74-99); Magnesium 2.3 mg/dL (1.6-2.3); Non-African American GFR(CKD) 89 (>60 ml/min/1.73 sqM); Sodium 127 mmol/L (137-145); Total Bilirubin 0.9 mg/dL (0.2-1.3); Total Protein 5.4 g/dL (6.3-8.2)
[2023-10-30 10:14] LABS: HCT 33.5 % (39.0-53.0); HGB 11.7 gm/dL (13.0-17.5); MCH 28.8 pg (25.0-35.0); MCHC 34.9 g/dL (31.0-37.0); MCV 82.5 fL (80.0-100.0); Mean Platelet Volume 7.9; Platelet Count 154 k/uL (150-450); RBC 4.06 m/uL (4.30-5.90); RDW 15.3 % (11.5-15.5); WBC 5.7 k/uL (3.8-10.6)
[2023-10-30 10:58] LABS: Band Neutrophils % 3 %; Lymphocytes # (M) 0.29 k/uL (1.0-4.8); Monocytes # (M) 0.68 k/uL (0-1.0); Neutrophils % (M) 80 %; Nucleated Red Blood Cells 0 /100 WBC (0-0); Total Cells Counted 100
[2023-10-30 11:00] LABS: RBC Morphology Normal
[2023-10-30] MEDS: CALCIUM GLUCONATE IN NACL 1 GM in SALINE 1 100ML.BAG IVPB ONE (11:37)
[2023-10-30] MEDS: SODIUM CHLORIDE 0.9% 1,000 ML IV STA (11:37)
[2023-10-30 12:09] VITALS: BP 113/58; PULSE 81
== END 2023-10-30 12:31 | disposition home or self-care (01) ==
LOC: EC 08:41
DX: R53.1 Weakness (principal); I25.2 Old myocardial infarction; Z87.891 Personal history of nicotine dependence
CPT/HCPCS: 99285; 96365; 36415; 93005; 80053; 83605; 83735; 85025; J0613

== ENCOUNTER 2023-11-02 09:14 | Observation (INO) | payer MEDICARE, BC ==
--- NOTE | 2023-11-02 09:44 | ED ---
General Adult HPI - General Chief complaint: Weakness Stated complaint: Fatigue Time Seen by Provider: 11/02/23 09:30 Source: patient, RN notes reviewed, old records reviewed Mode of arrival: ambulatory Limitations: no limitations - History of Present Illness Initial comments: This is an 82-year-old male with a past medical history significant for lung cancer with metastatic disease to the bone. Patient states for the last week has been very fatigued. Patient was here a few days ago and it was determined that he could go home but since then he has become more fatigued. Patient states he normally walks a mile to [facility] and back but now he cannot even walk 10 feet without being exhausted. Patient denies any chest pain. Patient denies any fever chills or cough or patient has abdominal pain patient has nausea vomiting diarrhea. Patient states last time he was here his sodium and calcium were low. - Related Data Home Medications Medication Instructions Recorded Confirmed Finasteride [Proscar] 5 mg PO DAILY 04/07/22 11/02/23 Tamsulosin [Flomax] 0.8 mg PO DAILY 04/07/22 11/02/23 Vit C/E/Zn/Coppr/Lutein/Zeaxan 1 cap PO BID 04/07/22 11/02/23 [Preservision Areds 2 Softgel] Acetaminophen [Tylenol Extra 1,000 mg PO Q6H PRN 10/30/23 11/02/23 Strength] Ibuprofen [Motrin Ib] 400 mg PO Q6H PRN 10/30/23 11/02/23 Ondansetron [Zofran] 4 mg PO DAILY PRN 10/30/23 11/02/23 amLODIPine [Norvasc] 5 mg PO HS 10/30/23 11/02/23 Allergies Allergy/AdvReac Type Severity Reaction Status Date / Time No Known Allergies Allergy Verified 11/02/23 12:32 Review of Systems ROS Statement: Those systems with pertinent positive or pertinent negative responses have been documented in the HPI. ROS Other: All systems not noted in ROS Statement are negative. Past Medical History Past Medical History: Cancer, Hypertension, Prostate Disorder Additional Past Medical History / Comment(s): R lung cancer and possible L lung cancer, hx colon polyps, had admission Mar 2022 for abscess and cellulitis to left leg, bph History of Any Multi-Drug Resistant Organisms: None Reported Past Surgical History: Hernia Repair Additional Past Surgical History / Comment(s): michel inguinal hernia repairsl,michel cataracts Past Anesthesia/Blood Transfusion Reactions: No Reported Reaction Additional Past Anesthesia/Blood Transfusion Reaction / Comment(s): no hx blood transfusion Past Psychological History: No Psychological Hx Reported Smoking Status: Former smoker Past Alcohol Use History: Rare Past Drug Use History: None Reported - Past Family History Mother Family Medical History: COPD Additional Family Medical History / Comment(s): Smoker General Exam - General Exam Comments Initial Comments: GENERAL: Patient is well-developed and well-nourished. Patient is nontoxic and well- hydrated and is in no acute distress. ENT: Neck is soft and supple. No significant lymphadenopathy is noted. Oropharynx is clear. Moist mucous membranes. Neck has full range of motion without eliciting any pain. EYES: The sclera were anicteric and conjunctiva were pink and moist. Extraocular movements were intact and pupils were equal round and reactive to light. Eyelids were unremarkable. PULMONARY: Unlabored respirations. Good breath sounds bilaterally. No audible rales rhonchi or wheezing was noted. CARDIOVASCULAR: There is a regular rate and rhythm without any murmurs gallops or rubs. ABDOMEN: Soft and nontender with normal bowel sounds. No palpable organomegaly was noted. There is no palpable pulsatile mass. SKIN: Skin is clear with no lesions or rashes and otherwise unremarkable. NEUROLOGIC: Patient is alert and oriented x3. Cranial nerves II through XII are grossly intact. Motor and sensory are also intact. Normal speech, volume and content. Symmetrical smile. MUSCULOSKELETAL: Normal extremities with adequate strength and full range of motion. No lower extremity swelling or edema. No calf tenderness. LYMPHATICS: No significant lymphadenopathy is noted PSYCHIATRIC: Normal psychiatric evaluation. Limitations: no limitations Course Vital Signs 11/02/23 09:26 Temperature 98.3 F Pulse Rate 103 H Respiratory 20 Rate Blood Pressure 119/63 O2 Sat by Pulse 99 Oximetry Medical Decision Making - Medical Decision Making EKG is interpreted by myself but EKG shows a sinus rhythm at 92 bpm parable 159 QRS is 81 QT interval 363 QTc is 413. Patient's EKG shows no ST segment elevation or depression. Was pt. sent in by a medical professional or institution (, PA, LINE OPERATOR, urgent care, hospital, or senior living...) When possible be specific @ -Patient was told to come in by Dr. Hinojosa Did you speak to anyone other than the patient for history (EMS, parent, family, police, friend...)? What history was obtained from this source @ -Son gave quite a bit of the history of recent events particularly his eating habits as of late Did you review nursing and triage notes (agree or disagree)? Why? @ -I reviewed and agree with nursing and triage notes Were old charts reviewed (outside hosp., previous admission, EMS record, old EKG, old radiological studies, urgent care reports/EKG's, senior living records)? Report findings @ -I reviewed prior chart and lab work lab work indicated a slight improvement in the sodium and slight improvement in the calcium levels. Differential Diagnosis (chest pain, altered mental status, abdominal pain women, abdominal pain men, vaginal bleeding, weakness, fever, dyspnea, syncope, headache, dizziness, GI bleed, back pain, seizure, CVA, palpatations, mental health, musculoskeletal)? @ -Differential Weakness: Hypoglycemia, shock, sepsis, hyponatremia, anemia, infection, ID, ETOH, adverse medicine reaction, overdose, stroke, this is not meant to be an all-inclusive list. EKG interpreted by me (3pts min.). @ -As above X-rays interpreted by me (1pt min.). @ -Chest x-ray showed no acute CT interpreted by me (1pt min.). @ -CT of the chest shows no pulmonary embolism and no acute abnormality U/S interpreted by me (1pt. min.). @ -None done What testing was considered but not performed or refused? (CT, X-rays, U/S, labs)? Why? @ -None What meds were considered but not given or refused? Why? @ -None Did you discuss the management of the patient with other professionals (professionals i.e. DrMaria Fernanda, PA, LINE OPERATOR, lab, RT, psych nurse, social worker delinquency prevention, criminal defense lawyer, teacher, airline pilot/first officer, cyanide case hardener)? Give summary @ -I spoke with Dr. Lovell and he agreed to admit the patient Was smoking cessation discussed for >3mins.? @ -No Was critical care preformed (if so, how long)? @ -No Were there social determinants of health that impacted care today? How? (Homelessness, low income, unemployed, alcoholism, drug addiction, transportation, low edu. Level, literacy, decrease access to med. care, [facility], rehab)? @ -No Was there de-escalation of care discussed even if they declined (Discuss DNR or withdrawal of care, Hospice)? DNR status @ -No What co-morbidities impacted this encounter? (DM, HTN, Smoking, COPD, CAD, Cancer, CVA, ARF, Chemo, Hep., AIDS, mental health diagnosis, sleep apnea, morbid obesity)? @ -None Was patient admitted / discharged? Hospital course, mention meds given and route, prescriptions, significant lab abnormalities, going to OR and other pertinent info. @ -Patient remains weak and will be admitted for this to do Dr. Lovell. I will consult Dr. Hinojosa as well Undiagnosed new problem with uncertain prognosis? @ -No Drug Therapy requiring intensive monitoring for toxicity (Heparin, Nitro, Insulin, Cardizem)? @ -No Were any procedures done? @ -No Diagnosis/symptom? @ -Generalized weakness Acute, or Chronic, or Acute on Chronic? @ -Acute Uncomplicated (without systemic symptoms) or Complicated (systemic symptoms)? @ -Complicated Side effects of treatment? @ -No Exacerbation, Progression, or Severe Exacerbation? @ -No Poses a threat to life or bodily function? How? (Chest pain, USA, ID, pneumonia, PE, COPD, DKA, ARF, appy, cholecystitis, CVA, Diverticulitis, Homicidal, Suicidal, threat to staff... and all critical care pts) @ -No Diagnosis/symptom? @ -Hyponatremia Acute, or Chronic, or Acute on Chronic? @ -Acute Uncomplicated (without systemic symptoms) or Complicated (systemic symptoms)? @ -Complicated Side effects of treatment? @ -None Exacerbation, Progression, or Severe Exacerbation] @ -No Poses a threat to life or bodily function? @ -No - Lab Data Result diagrams: 11/02/23 10:19 11/02/23 10:19 Lab Results 11/02/23 11/02/23 11/02/23 Range/Units 10:19 10:19 10:19 WBC 6.4 (3.8-10.6) k/uL RBC 4.38 (4.30-5.90) m/uL Hgb 11.9 L (13.0-17.5) gm/dL Hct 36.5 L (39.0-53.0) % MCV 83.3 (80.0-100.0) fL MCH 27.2 (25.0-35.0) pg MCHC 32.7 (31.0-37.0) g/dL RDW 15.2 (11.5-15.5) % Plt Count 153 (150-450) k/uL MPV 7.5 Neutrophils % 80 % Lymphocytes % 7 % Monocytes % 7 % Eosinophils % 3 % Basophils % 0 % Neutrophils # 5.1 (1.3-7.7) k/uL Lymphocytes # 0.5 L (1.0-4.8) k/uL Monocytes # 0.4 (0-1.0) k/uL Eosinophils # 0.2 (0-0.7) k/uL Basophils # 0.0 (0-0.2) k/uL D-Dimer 2.02 H (<0.60) mg/L FEU Sodium 129 L (137-145) mmol/L Potassium 3.6 (3.5-5.1) mmol/L Chloride 106 (98-107) mmol/L Carbon Dioxide 17 L (22-30) mmol/L Anion Gap 6 mmol/L BUN 18 (9-20) mg/dL Creatinine 0.66 (0.66-1.25) mg/dL Est GFR (CKD-EPI)AfAm >90 (>60 ml/min/1.73 sqM) Est GFR (CKD-EPI)NonAf >90 (>60 ml/min/1.73 sqM) Glucose 123 H (74-99) mg/dL Plasma Lactic Acid Binu (0.7-2.0) mmol/L Calcium 7.5 L (8.4-10.2) mg/dL Magnesium 2.2 (1.6-2.3) mg/dL Total Bilirubin 0.7 (0.2-1.3) mg/dL AST 41 (17-59) U/L ALT 81 H (4-49) U/L Alkaline Phosphatase 100 (38-126) U/L Troponin I (0.000-0.034) ng/mL Total Protein 5.1 L (6.3-8.2) g/dL Albumin 2.4 L (3.5-5.0) g/dL TSH 0.460 L (0.465-4.680) mIU/L 11/02/23 11/02/23 Range/Units 10:19 10:19 WBC (3.8-10.6) k/uL RBC (4.30-5.90) m/uL Hgb (13.0-17.5) gm/dL Hct (39.0-53.0) % MCV (80.0-100.0) fL MCH (25.0-35.0) pg MCHC (31.0-37.0) g/dL RDW (11.5-15.5) % Plt Count (150-450) k/uL MPV Neutrophils % % Lymphocytes % % Monocytes % % Eosinophils % % Basophils % % Neutrophils # (1.3-7.7) k/uL Lymphocytes # (1.0-4.8) k/uL Monocytes # (0-1.0) k/uL Eosinophils # (0-0.7) k/uL Basophils # (0-0.2) k/uL D-Dimer (<0.60) mg/L FEU Sodium (137-145) mmol/L Potassium (3.5-5.1) mmol/L Chloride (98-107) mmol/L Carbon Dioxide (22-30) mmol/L Anion Gap mmol/L BUN (9-20) mg/dL Creatinine (0.66-1.25) mg/dL Est GFR (CKD-EPI)AfAm (>60 ml/min/1.73 sqM) Est GFR (CKD-EPI)NonAf (>60 ml/min/1.73 sqM) Glucose (74-99) mg/dL Plasma Lactic Acid Binu 1.7 (0.7-2.0) mmol/L Calcium (8.4-10.2) mg/dL Magnesium (1.6-2.3) mg/dL Total Bilirubin (0.2-1.3) mg/dL AST (17-59) U/L ALT (4-49) U/L Alkaline Phosphatase (38-126) U/L Troponin I <0.012 (0.000-0.034) ng/mL Total Protein (6.3-8.2) g/dL Albumin (3.5-5.0) g/dL TSH (0.465-4.680) mIU/L Disposition Clinical Impression: Hyponatremia, Hypocalcemia, Generalized weakness Disposition: ADMITTED IP TO THIS HOSP Referrals: Arthur Armstrong MD [Primary Care Provider] - 1-2 days Time of Disposition: 14:08
[2023-11-02] MEDS: SODIUM CHLORIDE 0.9% 500 ML 500 ML IV STA (10:13)
[2023-11-02 10:26] LABS: Basophils % (A) 0 %; Eosinophils # (A) 0.2 k/uL (0-0.7); Eosinophils % (A) 3 %; HCT 36.5 % (39.0-53.0); HGB 11.9 gm/dL (13.0-17.5); Lymphocytes # (A) 0.5 k/uL (1.0-4.8); Lymphocytes % (A) 7 %; MCH 27.2 pg (25.0-35.0); MCHC 32.7 g/dL (31.0-37.0); MCV 83.3 fL (80.0-100.0); Mean Platelet Volume 7.5; Monocytes # (A) 0.4 k/uL (0-1.0); Monocytes % (A) 7 %; Neutrophils # (A) 5.1 k/uL (1.3-7.7); Neutrophils % (A) 80 %; Platelet Count 153 k/uL (150-450); RBC 4.38 m/uL (4.30-5.90); RDW 15.2 % (11.5-15.5); WBC 6.4 k/uL (3.8-10.6)
--- NOTE | 2023-11-02 10:36 | XR ---
EXAMINATION TYPE: XR chest 2V DATE OF EXAM: 11/02/2023 COMPARISON: 03/14/2023 HISTORY: 82-year-old male with weakness TECHNIQUE: AP and lateral views FINDINGS: Heart borderline in size. Increasing interstitial densities and now small pleural effusions. Hyperinf lation. Known right upper lobe mass. IMPRESSION: COPD and known right upper lobe mass. Correlate for developing mild pulmonary vascular congestion evens ng with small effusions.
[2023-11-02 10:37] LABS: ALT 81 U/L (4-49); AST 41 U/L (17-59); African American GFR (CKD) >90 (>60 ml/min/1.73 sqM); Albumin 2.4 g/dL (3.5-5.0); Alkaline Phosphatase 100 U/L (38-126); Anion Gap 6 mmol/L; Blood Urea Nitrogen 18 mg/dL (9-20); Calcium 7.5 mg/dL (8.4-10.2); Carbon Dioxide 17 mmol/L (22-30); Chloride 106 mmol/L (98-107); Glucose 123 mg/dL (74-99); Magnesium 2.2 mg/dL (1.6-2.3); Non-African American GFR(CKD) >90 (>60 ml/min/1.73 sqM); Potassium 3.6 mmol/L (3.5-5.1); Sodium 129 mmol/L (137-145); Total Bilirubin 0.7 mg/dL (0.2-1.3); Total Protein 5.1 g/dL (6.3-8.2)
--- NOTE | 2023-11-02 13:24 | CT ---
EXAMINATION TYPE: CT chest angio for PE DATE OF EXAM: 11/02/2023 COMPARISON: PET CT 09/26/[address] 07/26/2023 HISTORY: 83-year-old male shortness of breath, ELevated D-dimer, Fatigue TECHNIQUE: Contiguous axial scanning of the chest performed with IV Contrast, patient injected with 1 00 ml mL of Isovue 370. Coronal and sagittal MIP reconstructions performed. CT DLP: 288 mGycm Automated exposure control for dose reduction was used. FINDINGS: The heart is borderline enlarged with trace anterior basilar pericardial fluid measuring 5 mm thick. No flattening of the interventricular septum reflux of contrast into the hepatic veins. Borderline aneurysmal aortic root at 4.0 cm with mild aortic valve calcifications. Ectatic ascending aorta 3.9 cm. Conventional arch vessel branching anatomy. Mild pericarinal and right hilar soft tissue thickening may be slightly increased on the right trache obronchial angle region on axial image 56. Enlarged caliber to the main right and left pulmonary arteries up to 3.1 cm suggesting underlying pul monary arterial hypertension. There is breathing motion artifact which limits assessment for pulmonary emboli. No definite pulmonar y embolus is seen. Mild generalized anasarca change. There are small right greater than left pleural effusions with dk cent atelectasis. Patient's spiculated right upper lobe mass currently 2.7 x 1.6 cm. Versus 3.7 x 2.0 cm, previously. A couple scattered rib lesions and additional lesions within the upper thoracic spine are either surekha lar or less pronounced. Redemonstrated are scattered sclerotic areas that did not show metabolic activity, possible old disea se. [facility] mid thoracic spine. Normal variant sternal foramen. IMPRESSION: 1. NO EVIDENCE FOR PULMONARY EMBOLUS. 2. BORDERLINE CARDIOMEGALY WITH PULMONARY ARTERIAL HYPERTENSION, AND SMALL RIGHT GREATER THAN LEFT PL EURAL EFFUSIONS. CORRELATE FOR MILD CHF/FLUID OVERLOAD STATE. NO FANNIE PULMONARY EDEMA. 3. RIGHT UPPER LOBE SPICULATED MASS IS SMALLER AT 2.7 CM VERSUS 3.7 CM, PREVIOUSLY. A FEW SCATTERED L YTIC RIB LESIONS AND LESIONS IN THE UPPER THORACIC SPINE ARE EITHER SIMILAR OR LESS PRONOUNCED. 4. SOME SOFT TISSUE IN THE PERICARINAL REGION AND RIGHT TRACHEOBRONCHIAL ANGLE IS SIMILAR OR PERHAPS MINIMALLY INCREASED. ATTENTION ON ROUTINE SURVEILLANCE FOLLOW-UP.
[2023-11-02] MEDS: SODIUM CHLORIDE 0.9% 1,000 ML IV ONE ×2 (13:58→17:42)
[2023-11-02 14:10] LABS: Appearance,Urine Clear (Clear); Bilirubin,Urine Negative (Negative); Blood,Urine Negative (Negative); Color,Urine Yellow; Glucose,Urine (UA) Negative (Negative); Ketones,Urine Negative (Negative); Leukocyte Esterase,Urine Negative (Negative); Nitrite,Urine Negative (Negative); PH, Urine 6.5 (5.0-8.0); Protein,Urine Trace (Negative); Specific Gravity,Urine >1.050 (1.001-1.035); Urobilinogen,Urine <2.0 mg/dL (<2.0)
[2023-11-02] MEDS ORDERED: IBUPROFEN 200 MG TAB PO PRN (16:59)
[2023-11-02] MEDS ORDERED: ACETAMINOPHEN TAB 500 MG TAB PO PRN (16:59)
[2023-11-02] MEDS ORDERED: TEMAZEPAM 15 MG CAP PO PRN (17:00)
[2023-11-02] MEDS ORDERED: ONDANSETRON 4 MG/2 ML VIAL IVP PRN (17:00)
[2023-11-02] MEDS ORDERED: NALOXONE 0.4 MG/ML 1 ML VIAL IV PRN (17:00)
[2023-11-02] MEDS ORDERED: CALCIUM CARBONATE 500 MG CHEWABLE PO PRN (17:00)
[2023-11-02] MEDS ORDERED: ALPRAZolam 0.25 MG TAB PO PRN (17:00)
[2023-11-02] MEDS ORDERED: IBUPROFEN 400 MG TAB PO PRN (17:04)
--- NOTE | 2023-11-02 17:04 | P.HPIM ---
History of Present Illness H&P Date: 11/02/23 Chief Complaint: Week This is a pleasant 82-year-old patient who follows with visiting physicians Dr. Armstrong. Patient is a resident of [facility]. His also lives in the dementia unit. Patient is accompanied by his son Scottie Camacho in the ER. 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 Patient currently has been gettingKrezeki. By his oncologist Dr. Sandoval Strong. 5 days ago patient felt extremely fatigued. Patient was brought down to the ER. On October 29. Sodium was down to 127. Creatinine was normal. UA was negative. Sent home with IV fluids. Patient appetite had gone down. Appetite did hop picker. Subsequently the following day patient was seen in the office with Dr. Purdy. He suggested patient should go back to the ER to get stronger. Next he was seen by Dr. Armstrong at the apartment. As patient still feeling very weak not able to walk more than a few feet decided to come in. No diarrhea. No fever no chills. Patient had metastatic bone pain. Which is currently well-controlled. Review of systems: GEN.: Tired, decreased appetite EYES: None HEENT: None NECK: None RESPIRATORY: None CARDIOVASCULAR: None GASTROINTESTINAL: None GENITOURINARY: None MUSCULOSKELETAL: Joint pains LYMPHATICS: None HEMATOLOGICAL: None PSYCHIATRY: None NEUROLOGICAL: None Past medical history to include: Hypertension, prostate disorder, B12 deficiency. Stage IV lung cancer with metastatic cyst to the bone diagnosed February 2023 Social history: Lives at [facility]. His also lives in the the dementia unit. Patient smoked for about 25 years stopped about 37 years ago. Used to work for IT. Alcohol occasionally. Physical examination: VITAL SIGNS: 98.3, 103, 20, 1 one 9 x 63, 99% room air GENERAL: Resting in bed, tired EYES: Pupils equal. Conjunctiva normal. HEENT: External appearance of nose and ears normal, oral cavity grossly normal. NECK: JVD not raised; masses not palpable. HEART: First and second heart sounds are normal; no edema. LUNGS: Respiratory rate normal; clear to auscultation. ABDOMEN: Soft, nontender, liver spleen not palpable, no masses palpable. PSYCH: Alert and oriented x3; mood and affect normal. MUSCULOSKELETAL:No Clubbing/cyanosis;muscles-grossly intact. Evidence of OA. Left lower extremity dressing over the abscess site. NEUROLOGICAL: Cranial nerves grossly intact; no facial asymmetry, power and sensation grossly intact. LYMPHATICS: No lymph nodes palpable in the axilla and neck INVESTIGATIONS, reviewed in the clinical context: November 02, 2023: White count 6.4 hemoglobin 11.9 platelets 153 sodium 129 potassium 3.6 BUN 18 creatinine 0.66 blood glucose 123 albumin 2.4 UA: Negative xt>1050 Assessment plan: -Hyponatremia, suspect hypoosmolar from decreased oral intake, for underlying malignancy Fluid restrict 1500 cc a day Normal saline -Acute medical asthenia from above -Stage IV lung cancer metastatic to the bones Being followed by oncologist Dr. Titus Ortiz -BPH Proscar -Vitamin B12 deficiency Vitamin B12 -Essential hypertension Norvasc -DNR -POA [Scottie-son lives in [facility]] Past Medical History Past Medical History: Cancer, Hypertension, Prostate Disorder Additional Past Medical History / Comment(s): R lung cancer and possible L lung cancer, hx colon polyps, had admission Mar 2022 for abscess and cellulitis to left leg, bph History of Any Multi-Drug Resistant Organisms: None Reported Past Surgical History: Hernia Repair Additional Past Surgical History / Comment(s): michel inguinal hernia repairsl,michel cataracts Past Anesthesia/Blood Transfusion Reactions: No Reported Reaction Additional Past Anesthesia/Blood Transfusion Reaction / Comment(s): no hx blood transfusion Past Psychological History: No Psychological Hx Reported Smoking Status: Former smoker Past Alcohol Use History: Rare Past Drug Use History: None Reported - Past Family History Mother Family Medical History: COPD Additional Family Medical History / Comment(s): Smoker Medications and Allergies Home Medications Medication Instructions Recorded Confirmed Type Finasteride [Proscar] 5 mg PO DAILY 04/07/22 11/02/23 History Tamsulosin [Flomax] 0.8 mg PO DAILY 04/07/22 11/02/23 History Vit C/E/Zn/Coppr/Lutein/Zeaxan 1 cap PO BID 04/07/22 11/02/23 History [Preservision Areds 2 Softgel] Acetaminophen [Tylenol Extra 1,000 mg PO Q6H PRN 10/30/23 11/02/23 History Strength] Ibuprofen [Motrin Ib] 400 mg PO Q6H PRN 10/30/23 11/02/23 History Ondansetron [Zofran] 4 mg PO DAILY PRN 10/30/23 11/02/23 History amLODIPine [Norvasc] 5 mg PO HS 10/30/23 11/02/23 History Allergies Allergy/AdvReac Type Severity Reaction Status Date / Time No Known Allergies Allergy Verified 11/02/23 12:32 Physical Exam Vitals: Vital Signs Temp Pulse Resp BP Pulse Ox 11/02/23 16:00 93 16 111/64 98 11/02/23 15:00 86 20 123/70 97 11/02/23 14:00 86 21 123/70 99 11/02/23 13:00 73 22 125/68 96 11/02/23 12:00 85 20 118/65 99 11/02/23 11:00 85 22 114/66 98 11/02/23 09:26 98.3 F 103 H 20 119/63 99 Intake and Output 11/02/23 11/02/23 11/02/23 06:59 14:59 22:59 Other: Weight 81.647 kg Results CBC & Chem 7: 11/02/23 10:19 11/02/23 10:19 Labs: Abnormal Lab Results - Last 24 Hours (Table) 11/02/23 11/02/23 11/02/23 Range/Units 10:19 10:19 10:19 Hgb 11.9 L (13.0-17.5) gm/dL Hct 36.5 L (39.0-53.0) % Lymphocytes # 0.5 L (1.0-4.8) k/uL D-Dimer 2.02 H (<0.60) mg/L FEU Sodium 129 L (137-145) mmol/L Carbon Dioxide 17 L (22-30) mmol/L Glucose 123 H (74-99) mg/dL Calcium 7.5 L (8.4-10.2) mg/dL ALT 81 H (4-49) U/L Total Protein 5.1 L (6.3-8.2) g/dL Albumin 2.4 L (3.5-5.0) g/dL TSH 0.460 L (0.465-4.680) mIU/L Ur Specific Alpha (1.001-1.035) Urine Protein (Negative) 11/02/23 Range/Units 13:58 Hgb (13.0-17.5) gm/dL Hct (39.0-53.0) % Lymphocytes # (1.0-4.8) k/uL D-Dimer (<0.60) mg/L FEU Sodium (137-145) mmol/L Carbon Dioxide (22-30) mmol/L Glucose (74-99) mg/dL Calcium (8.4-10.2) mg/dL ALT (4-49) U/L Total Protein (6.3-8.2) g/dL Albumin (3.5-5.0) g/dL TSH (0.465-4.680) mIU/L Ur Specific [place] >1.050 H (1.001-1.035) Urine Protein Trace H (Negative)
[2023-11-02] MEDS: ENOXAPARIN 40 MG/0.4 ML SYRINGE SQ SCH (17:42)
[2023-11-02] MEDS: amLODIPine 10 MG TAB PO SCH (20:29)
[2023-11-02] MEDS ORDERED: NON FORMULARY DRUG (Vit C/E/Zn/Coppr/Lutein/Zeaxan [Preservision Areds 2 Softgel] 1 EACH C PO SCH (21:00)
[2023-11-03 07:46] LABS: African American GFR (CKD) >90 (>60 ml/min/1.73 sqM); Anion Gap 4 mmol/L; Blood Urea Nitrogen 12 mg/dL (9-20); Calcium 7.2 mg/dL (8.4-10.2); Carbon Dioxide 18 mmol/L (22-30); Chloride 108 mmol/L (98-107); Glucose 93 mg/dL (74-99); Non-African American GFR(CKD) >90 (>60 ml/min/1.73 sqM); Potassium 3.8 mmol/L (3.5-5.1); Sodium 130 mmol/L (137-145)
[2023-11-03] MEDS: TAMSULOSIN 0.4 MG CAP.ER.24H PO SCH (08:38)
[2023-11-03] MEDS: FINASTERIDE 5 MG TAB PO SCH (08:38)
--- NOTE | 2023-11-03 16:26 | P.PN ---
Progress Note - Text Progress Note Date: 11/03/23 Chief Complaint: Week This is a pleasant 82-year-old patient who follows with visiting physicians Dr. Armstrong. Patient is a resident of [facility]. His also lives in the dementia unit. Patient is accompanied by his son Scottie Camacho in the ER. 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 Patient currently has been gettingKrezeki. By his oncologist Dr. Sandoval Strong. 5 days ago patient felt extremely fatigued. Patient was brought down to the ER. On October 29. Sodium was down to 127. Creatinine was normal. UA was negative. Sent home with IV fluids. Patient appetite had gone down. Appetite did pickling solution maker. Subsequently the following day patient was seen in the office with Dr. Purdy. He suggested patient should go back to the ER to get stronger. Next he was seen by Dr. Armstrong at the apartment. As patient still feeling very weak not able to walk more than a few feet decided to come in. No diarrhea. No fever no chills. Patient had metastatic bone pain. Which is currently well-controlled. November 02: Did eat a fair breakfast. Did sit up in a chair. PT OT on the case. Being evaluated for rehab. No pain. Patient's CODE STATUS was clarified as full code. Blood pressure running on the lower side. Cut back Norvasc to 2.5 nightly. Add sodium chloride tablets. Active Medications Acetaminophen (Acetaminophen Tab 500 Mg Tab) 1,000 mg PO Q6H PRN PRN Reason: Fever and/ or Pain Alprazolam (Alprazolam 0.25 Mg Tab) 0.25 mg PO Q6HR PRN PRN Reason: Anxiety Amlodipine Besylate (Amlodipine 10 Mg Tab) 5 mg PO HS COUNT INCLUDES THE [facility] Last Admin: 11/02/23 20:29 Dose: 5 mg Calcium Carbonate/Glycine (Calcium Carbonate 500 Mg Chewable) 1,000 mg PO Q4HR PRN PRN Reason: Dyspepsia Enoxaparin Sodium (Enoxaparin 40 Mg/0.4 Ml Syringe) 40 mg SQ DAILY COUNT INCLUDES THE [facility] Last Admin: 11/03/23 08:38 Dose: 40 mg Finasteride (Finasteride 5 Mg Tab) 5 mg PO DAILY COUNT INCLUDES THE [facility] Last Admin: 11/03/23 08:38 Dose: 5 mg Ibuprofen (Ibuprofen 400 Mg Tab) 400 mg PO Q6H PRN PRN Reason: Pain Lactulose (Lactulose 20 Gm/30 Ml Cup) 20 gm PO DAILY PRN PRN Reason: Constipation Naloxone HCl (Naloxone 0.4 Mg/Ml 1 Ml Vial) 0.2 mg IV Q2M PRN PRN Reason: Opioid Reversal Ondansetron HCl (Ondansetron 4 Mg/2 Ml Vial) 4 mg IVP Q8HR PRN PRN Reason: Nausea And Vomiting Tamsulosin HCl (Tamsulosin 0.4 Mg Cap.Er.24h) 0.8 mg PO DAILY SILVANA Last Admin: 11/03/23 08:38 Dose: 0.8 mg Temazepam (Temazepam 15 Mg Cap) 15 mg PO HS PRN PRN Reason: Insomnia Past medical history to include: Hypertension, prostate disorder, B12 deficiency. Stage IV lung cancer with metastatic cyst to the bone diagnosed February 2023 Social history: Lives at [facility]. His also lives in the the dementia unit. Patient smoked for about 25 years stopped about 37 years ago. Used to work for [employer]. Alcohol occasionally. Physical examination: VITAL SIGNS: 97.5, 81, 17, 1 one 9 x 57, 97% room air GENERAL: Resting in bed, comfortable EYES: Pupils equal. Conjunctiva normal. HEENT: External appearance of nose and ears normal, oral cavity grossly normal. NECK: JVD not raised; masses not palpable. HEART: First and second heart sounds are normal; no edema. LUNGS: Respiratory rate normal; clear to auscultation. ABDOMEN: Soft, nontender, liver spleen not palpable, no masses palpable. PSYCH: Alert and oriented x3; mood and affect normal. MUSCULOSKELETAL:No Clubbing/cyanosis;muscles-grossly intact. Evidence of OA. Left lower extremity dressing over the abscess site. INVESTIGATIONS, reviewed in the clinical context: November 03, 2023: Sodium 130 potassium 3.8 creatinine 0.61. Serum osmolality 271 November 02, 2023: White count 6.4 hemoglobin 11.9 platelets 153 sodium 129 potassium 3.6 BUN 18 creatinine 0.66 blood glucose 123 albumin 2.4 UA: Negative xt>1050 Assessment plan: -Hyponatremia, hypoosmolar from decreased oral intake, from underlying malignancy Fluid restrict 1500 cc a day Add sodium tablets. Avoid free fluid -Acute medical asthenia from above PT OT -Stage IV lung cancer metastatic to the bones Being followed by oncologist Dr. Khushi Hinojosa -BPH Proscar -Vitamin B12 deficiency Vitamin B12 -Essential hypertension, blood pressure relatively on the lower side. Cut back Norvasc to 2.5 mg nightly -DNR -POA [Scottie-son lives in [facility], [place]] Discussed with patient Past Medical History Past Medical History: Cancer, Hypertension, Prostate Disorder Additional Past Medical History / Comment(s): R lung cancer and possible L lung cancer, hx colon polyps, had admission Mar 2022 for abscess and cellulitis to left leg, bph History of Any Multi-Drug Resistant Organisms: None Reported Past Surgical History: Hernia Repair Additional Past Surgical History / Comment(s): michel inguinal hernia repairsl,michel cataracts Past Anesthesia/Blood Transfusion Reactions: No Reported Reaction Additional Past Anesthesia/Blood Transfusion Reaction / Comment(s): no hx blood transfusion Past Psychological History: No Psychological Hx Reported Smoking Status: Former smoker Past Alcohol Use History: Rare Past Drug Use History: None Reported
[2023-11-03] MEDS: SODIUM CHLORIDE TAB 1 GM TAB PO SCH (17:09)
[2023-11-03] MEDS: amLODIPine 2.5 MG TAB PO SCH (21:06)
--- NOTE | 2023-11-04 00:33 | P.CONS ---
History of Present Illness - Reason for Consult Consult date: 11/03/23 NSCLC Requesting physician: Merrill Godinez - Chief Complaint weakness - History of Present Illness Mr Encinas is a 82 year old male with a signicant history of NSCLC. He is a patient of Dr. Lyon. The patient had a chest x-ray done on 02/19/23, as he developed somewhat acute onset of productive cough and had coughed up a small amount of blood. This showed ill-defined opacity overlying the right upper lobe with mass or infiltrate in the differential. He therefore had a CT of the chest with contrast on 02/21/23. This showed a spiculated 4.4 x 3.7 cm mass, enlarged, necrotic pretracheal and right hilar nodes measuring 2.4 and 3 cm respectively. There was also a destructive lytic lesion in the T10 vertebral body, 2.1 cm. He was therefore referred here for further evaluation and recommendations. He was also referred to pulmonary medicine. He denied any prior history of malignancy. The patient smoked a pack a day, starting at age 16 but quit in 1984. He underw ent bronchoscopy with biopsy on 03/14/23, revealing adenocarcinoma, compatible with pulmonary origin. MRI brain was negative. PET scan showed stage IV disease with uptake in the right upper lobe mass, right paratracheal nodes, as well as in the rib cage, and various levels in the spine. Patient was seen by radiation oncology because of increasing right-sided back pain, and competed palliative radiation, starting 03/25/23, with partial relief. 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 He started Keytruda on 04/19/23, and continued on until disease progression noted in 09/2023. Keytruda was d/c and patient was started on Adag resib on 10/03/23. He had clinic f/u on 10/31/23 and was reporting weakness and anorexia. Was recently seen seen at [facility], and was given IV fluids and was discharged, sodium noted at 127. Adagresib was held, and patient was started on marinol and scheduled for IV hyradtion in clinic on 11/03 with f/u on 11/06. Dr. Hinojosa considering dose reduction of Adagresib. Patient presented to the emergency room with complaints of generalized weakness and decreased oral intake. Patient reports symptoms began to worsen after clinic follow-up on 10/30 which caused him to present to the emergency room for f urther evaluation. Patient reports mild shortness of breath on exertion. Denies nausea vomiting diarrhea. Denies abdominal pain. Denies fever and chills. On admission chest x-ray revealed COPD and known right upper lobe mass. With developing mild pulmonary vascular congestion with small effusions. CTA chest revealed no evidence for pulmonary embolism. Borderline cardiomegaly with pulmonary arterial hypertension and small right greater than left pleural effusions. No amelia pulmonary edema. Right upper lobe spiculated mass is smaller at 2.7 cm versus 3.7 cm. Previously noted scattered lytic rib lesions and lesions in the upper thoracic spine are either smaller or less pronounced. Small soft tissue in the pericarinal region in the right tracheobronchial angle is similar or perhaps minimally increased. Labs reviewed, WBC 6.4, hemoglobin 11.9, platelets 153,000. Creatinine 0.61, GFR greater than 90. Sodium 129, calcium 7.5, potassium 3.6. Troponin negative. UA not suspicious for UTI. Patient afebrile. At today's visit patient reports improvement in symptoms since admission. Reports generalized weakness and fatigue but denies pain, shortness of breath, nausea vomiting diarrhea, fever and chills. Review of Systems 10 point ROS is negative except as stated in the HPI Past Medical History Past Medical History: Cancer, Hypertension, Prostate Disorder Additional Past Medical History / Comment(s): R lung cancer and possible L lung cancer, hx colon polyps, had admission Mar 2022 for abscess and cellulitis to left leg, bph History of Any Multi-Drug Resistant Organisms: None Reported Past Surgical History: Hernia Repair Additional Past Surgical History / Comment(s): michel inguinal hernia repairsl,michel cataracts Past Anesthesia/Blood Transfusion Reactions: No Reported Reaction Additional Past Anesthesia/Blood Transfusion Reaction / Comm: no hx blood transfusion Past Psychological History: No Psychological Hx Reported Smoking Status: Former smoker Past Alcohol Use History: Rare Past Drug Use History: None Reported - Past Family History Mother Family Medical History: COPD Additional Family Medical History / Comment(s): Smoker Medications and Allergies Home Medications Medication Instructions Recorded Confirmed Type Finasteride [Proscar] 5 mg PO DAILY 04/07/22 11/02/23 History Tamsulosin [Flomax] 0.8 mg PO DAILY 04/07/22 11/02/23 History Vit C/E/Zn/Coppr/Lutein/Zeaxan 1 cap PO BID 04/07/22 11/02/23 History [Preservision Areds 2 Softgel] Acetaminophen [Tylenol Extra 1,000 mg PO Q6H PRN 10/30/23 11/02/23 History Strength] Ibuprofen [Motrin Ib] 400 mg PO Q6H PRN 10/30/23 11/02/23 History Ondansetron [Zofran] 4 mg PO DAILY PRN 10/30/23 11/02/23 History amLODIPine [Norvasc] 5 mg PO HS 10/30/23 11/02/23 History Allergies Allergy/AdvReac Type Severity Reaction Status Date / Time No Known Allergies Allergy Verified 11/02/23 12:32 Physical Exam Vitals: Vital Signs Temp Pulse Pulse Resp BP BP Pulse Ox 11/03/23 08:00 91 17 11/03/23 07:20 97.7 F 91 17 103/62 97 11/03/23 01:09 97.7 F 84 18 124/61 96 11/02/23 18:56 97.6 F 82 16 120/61 93 L 11/02/23 17:07 97.9 F 86 20 118/68 95 11/02/23 17:00 97 11/02/23 16:00 93 16 111/64 98 11/02/23 15:00 86 20 123/70 97 11/02/23 14:00 86 21 123/70 99 11/02/23 13:00 73 22 125/68 96 11/02/23 12:00 85 20 118/65 99 Intake and Output 11/02/23 11/03/23 11/03/23 22:59 06:59 14:59 Intake Total 700 Balance 700 Intake: Oral 700 Other: Voiding Method Toilet # Voids 1 1 1 # Bowel Movements 1 - Constitutional General appearance: average body habitus, no acute distress - EENT Eyes: anicteric sclerae ENT: hearing grossly normal - Respiratory Respiratory: bilateral: CTA - Cardiovascular Rhythm: regular Heart sounds: normal: S1, S2 - Gastrointestinal General gastrointestinal: soft, no tenderness - Integumentary Integumentary: no cyanotic - Neurologic no focal deficits - Musculoskeletal Musculoskeletal: strength equal bilaterally - Psychiatric Psychiatric: A&O x's 3 Results CBC & Chem 7: 11/02/23 10:19 11/03/23 07:20 Labs: Abnormal Lab Results - Last 24 Hours (Table) 11/02/23 11/03/23 Range/Units 13:58 07:20 Sodium 130 L (137-145) mmol/L Chloride 108 H (98-107) mmol/L Carbon Dioxide 18 L (22-30) mmol/L Creatinine 0.61 L (0.66-1.25) mg/dL Calcium 7.2 L (8.4-10.2) mg/dL Ur Specific [place] >1.050 H (1.001-1.035) Urine Protein Trace H (Negative) Chest x-ray: report reviewed CT scan - chest: report reviewed Assessment and Plan (1) Non-small cell lung cancer Current Visit: Yes Status: Acute Priority: Medium Code(s): C34.90 - MALIGNANT NEOPLASM OF UNSP PART OF UNSP BRONCHUS OR LUNG SNOMED Code(s): 260735267 (2) Generalized weakness Current Visit: Yes Status: Acute Priority: Medium Code(s): R53.1 - WEAKNESS SNOMED Code(s): 16301315 (3) Hyponatremia Current Visit: Yes Status: Acute Priority: Medium Code(s): E87.1 - HYPO- OSMOLALITY AND HYPONATREMIA SNOMED Code(s): 77459980 Plan: NSCLC, weakness: Presented with c/o of progressing generalized weakness and decreased oral intake. Patient reports symptoms began to worsen after clinic follow-up on 10/30. Also reports mild shortness of breath on exertion. During f/u on 10/31/23 he reported weakness and anorexia. Adagrasib was held, and patient was started on marinol and scheduled for IV hydration in clinic on 11/03 -Full oncological history in [facility] -Started Keytruda on 04/19/23, and continued on until disease progression noted in 09/2023. Keytruda was d/c and patient was started on Adagresib on 10/03/23. -On admission chest x-ray revealed COPD and known right upper lobe mass. With developing mild pulmonary vascular congestion with small effusions. CTA chest revealed no evidence for pulmonary embolism. Borderline cardiomegaly with pulmonary arterial hypertension and small right greater than left pleural effusions. No amelia pulmonary edema. Right upper lobe spiculated mass is smaller at 2.7 cm versus 3.7 cm. Previously noted scattered lytic rib lesions and lesions in the upper thoracic spine are either smaller or less pronounced. Small soft tissue in the pericarinal region and right tracheobronchial angle is similar or perhaps minimally increased. -Labs reviewed, WBC 6.4, hemoglobin 11.9, platelets 153,000. Creatinine 0.61, GFR > 90. Sodium 129, calcium 7.5, potassium 3.6. Troponin negative. UA not suspicious for UTI. Patient afebrile. -PT/OT consulted -Will hold marinol for now, as it may have exacerbated reported symptoms -Continue to hold Adagrasib. Dr. Hinojosa considering dose reduction -Clinic f/u scheduled for 11/06. Will further discuss medication dosing and when he should resume regimen
[2023-11-04 07:50] LABS: African American GFR (CKD) >90 (>60 ml/min/1.73 sqM); Anion Gap 5 mmol/L; Blood Urea Nitrogen 10 mg/dL (9-20); Calcium 7.3 mg/dL (8.4-10.2); Carbon Dioxide 20 mmol/L (22-30); Chloride 107 mmol/L (98-107); Glucose 90 mg/dL (74-99); Non-African American GFR(CKD) >90 (>60 ml/min/1.73 sqM); Potassium 3.4 mmol/L (3.5-5.1); Sodium 132 mmol/L (137-145)
[2023-11-04 07:51] VITALS: BP 111/65; PULSE 88; RESP 17; TEMP 97.5
[2023-11-04] MEDS: LACTULOSE 20 GM/30 ML CUP PO PRN (08:03)
--- NOTE | 2023-11-04 13:23 | P.PN ---
Subjective Progress Note Date: 11/04/23 Principal diagnosis: weakness, hypotension, metastatic NSCLC on targeted oral agent In f/u pt reports no changes in weakness and tiredness since admit. Work up did not reveal an underlying cause such as infection. Sodium was a little low on admit but, nothing significant, and slight improvement has not changed how pt is feeling. He has been holding adagrasib since last Saturday so, SE r/t treatment would have resolved by now. Pt does not look toxic or particularly unwell, Nursing reports he is ambulating independently, pt reports up to bathroom up to 5 times a night. Objective - Vital Signs Vital signs: Vital Signs Temp 97.5 F L 11/04/23 07:03 Pulse 88 11/04/23 07:03 Resp 17 11/04/23 07:03 BP 111/65 11/04/23 07:03 Pulse Ox 97 11/04/23 07:03 FiO2 Intake & Output 11/03/23 11/04/23 11/04/23 18:59 06:59 18:59 Intake Total 480 240 240 Balance 480 240 240 Intake: Oral 480 240 240 Other: Voiding Method Toilet Toilet # Voids 1 4 1 # Bowel Movements 1 - Constitutional General appearance: Present: average body habitus, cooperative, no acute distress - EENT Eyes: Present: anicteric sclerae, EOMI ENT: Present: hearing grossly normal - Respiratory Details: resp even and unlabored at rest - Cardiovascular Details: skin warm and dry to touch, well perfused - Peripheral edema leg Peripheral Edema: bilateral: None - Integumentary Integumentary: Present: normal - Neurologic Neurologic: Present: CNII-XII intact - Musculoskeletal Musculoskeletal: Present: generalized weakness, strength equal bilaterally - Psychiatric Psychiatric: Present: A&O x's 3, appropriate affect, intact judgment & insight - Labs CBC & Chem 7: 11/02/23 10:19 11/04/23 07:09 Labs: Abnormal Lab Results - Last 24 Hours (Table) 11/03/23 11/04/23 Range/Units 07:20 07:09 Sodium 132 L (137-145) mmol/L Potassium 3.4 L (3.5-5.1) mmol/L Carbon Dioxide 20 L (22-30) mmol/L Creatinine 0.65 L (0.66-1.25) mg/dL Osmolality 271 L (275-295) mOsm/kg Calcium 7.3 L (8.4-10.2) mg/dL Assessment and Plan (1) Generalized weakness Current Visit: Yes Status: Acute Priority: Medium Code(s): R53.1 - WEAKNESS SNOMED Code(s): 24587537 (2) Hyponatremia Current Visit: Yes Status: Resolved Priority: Medium Code(s): E87.1 - HYPO-OSMOLALITY AND HYPONATREMIA SNOMED Code(s): 82086828 (3) Non-small cell lung cancer Current Visit: Yes Status: Acute Priority: Medium Code(s): C34.90 - MALIGNANT NEOPLASM OF UNSP PART OF UNSP BRONCHUS OR LUNG SNOMED Code(s): 926994789 Plan: Weakness -Presented with c/o of progressing generalized weakness and decreased oral intake. No significant changes since admit. -Pt was contacted and told to hold adagrasib on the when he was found to have >3-5 ULN LFTs on routine lab work a few days before. He was offered hydration at that time but stated he felt ok. He was seen for f/u by MD on 10/30 reporting shortness of breath on exertion, weakness and anorexia. Pt was started on marinol and scheduled for IV hydration hyponatremia -Na+ 129 on admit, now 132 after fluids. No significant change in pt symptoms -Na+ low 2/2 lung ca, possibly treatment with adagrasib. Will cont to monitor. Metastatic NSCLC -Initally treated with IO first line for qbout 7 months. Imaging showed disease progression in September, started targeted Adagresib on 10/03/23. -CTA showed no evidence for pulmonary embolism, disease in RUL about 1 cm smaller, some bone lesions less pronounced. -Pt was contacted and told to hold adagrasib on the when he was found to have >3-5 ULN LFTs on routine lab work a few days before. His LFTs were back WNL on admit. -Infection work up neg -Marinol held for symptoms-no change in symptoms per pt. Discontinue. On chart review there is no significant wt loss noted -When talking with pt he refused PT/OT eval. He reports that he would like to back to the living facility where he and his reside. He feels he will get more exercise going to see her -Continue to hold Adagrasib for now. Will order additional labs (thyroid and cortisol) at clinic f/u in 3 days. Primary Onc considering dose reduction Case discussed with Attending and Nursing. Pt ok to be discharged from an Onc standpoint once cleared by Attending Pt verbalizes he understands and agrees with plan of care at this time
--- NOTE | 2023-11-04 16:47 | P.DS ---
Providers Date of admission: 11/02/23 14:09 Expected date of discharge: 11/04/23 Attending physician: Davide Lovell Consults: 11/02/23 14:08 Consult Physician Urgent Consulting Provider: Sandoval Hinojosa Consult Reason/Comments: Generalized weakness, history of lung cancer Do you want consulting provider notified?: Yes Primary care physician: [facility] Course: Chief Complaint: Week This is a pleasant 82-year-old patient who follows with visiting physicians Dr. Armstrong. Patient is a resident of [facility]. His also lives in the dementia unit. Patient is accompanied by his son Scottie Camacho in the ER. 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 Patient currently has been gettingKrezeki. By his oncologist Dr. Sandoval Strong. 5 days ago patient felt extremely fatigued. Patient was brought down to the ER. On October 29. Sodium was down to 127. Creatinine was normal. UA was negative. Sent home with IV fluids. Patient appetite had gone down. 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 Subsequently the following day patient was seen in the office with Dr. Purdy. He suggested patient should go back to the ER to get stronger. Next he was seen by Dr. Armstrong at the apartment. As patient still feeling very weak not able to walk more than a few feet decided to come in. No diarrhea. No fever no chills. Patient had metastatic bone pain. Which is currently well-controlled. November 02: Did eat a fair breakfast. Did sit up in a chair. PT OT on the case. Being evaluated for rehab. No pain. Patient's CODE STATUS was clarified as full code. Blood pressure running on the lower side. Cut back Norvasc to 2.5 nightly. Add sodium chloride tablets. November 03: Patient did ambulate. 100 feet-independent. Seen by physical therapy. Keen to go home. To his [facility] where he can visit his . He has appointment Dr. Hinojosa is being rescheduled as discussed with RESIDENTIAL RECYCLE DRIVER Jessica.Adagrasib-on hold for now. Questions answered. Cut back amlodipine to 2.5 mg at night. Blood pressure bit on the softer side. Discussion and discharge planning more than 35 minutes Past medical history to include: Hypertension, prostate disorder, B12 deficiency. Stage IV lung cancer with metastatic cyst to the bone diagnosed February 2023 Social history: Lives at [facility]. His also lives in the the dementia unit. Patient smoked for about 25 years stopped about 37 years ago. Used to work for IT. Alcohol occasionally. Physical examination: VITAL SIGNS: 97.5, 88, 17, 111/65, 97% room air GENERAL: Resting in bed, comfortable EYES: Pupils equal. Conjunctiva normal. HEENT: External appearance of nose and ears normal, oral cavity grossly normal. NECK: JVD not raised; masses not palpable. HEART: First and second heart sounds are normal; no edema. LUNGS: Respiratory rate normal; clear to auscultation. ABDOMEN: Soft, nontender, liver spleen not palpable, no masses palpable. PSYCH: Alert and oriented x3; mood and affect normal. MUSCULOSKELETAL:No Clubbing/cyanosis;muscles-grossly intact. Evidence of OA. Left lower extremity dressing over the abscess site. INVESTIGATIONS, reviewed in the clinical context: 13: Sodium 132 November 03, 2023: Sodium 130 potassium 3.8 creatinine 0.61. Serum osmolality 271 November 02, 2023: White count 6.4 hemoglobin 11.9 platelets 153 sodium 129 potassium 3.6 BUN 18 creatinine 0.66 blood glucose 123 albumin 2.4 UA: Negative xt>1050 Assessment plan: -Hyponatremia, hypoosmolar from decreased oral intake, from underlying malignan cy: Better Fluid restrict Sodium chloride tablet 1 tablet twice daily -Acute medical asthenia from above PT OT -Stage IV lung cancer metastatic to the bones Being followed by oncologist Dr. Khushi Hinojosa. Appointment being rescheduled Adagrasib-on hold for now. -BPH Proscar -Vitamin B12 deficiency Vitamin B12 -Essential hypertension, blood pressure relatively on the lower side. Norvasc to 2.5 mg nightly -DNR -POA [Scottie-son lives in [facility]] Disposition: [facility] Past Medical History Past Medical History: Cancer, Hypertension, Prostate Disorder Additional Past Medical History / Comment(s): R lung cancer and possible L lung cancer, hx colon polyps, had admission Mar 2022 for abscess and cellulitis to left leg, bph History of Any Multi-Drug Resistant Organisms: None Reported Past Surgical History: Hernia Repair Additional Past Surgical History / Comment(s): michel inguinal hernia repairsl,michel cataracts Past Anesthesia/Blood Transfusion Reactions: No Reported Reaction Additional Past Anesthesia/Blood Transfusion Reaction / Comment(s): no hx blood transfusion Past Psychological History: No Psychological Hx Reported Smoking Status: Former smoker Past Alcohol Use History: Rare Past Drug Use History: None Reported Plan - Discharge Summary New Discharge Prescriptions: New amLODIPine [Norvasc] 2.5 mg PO HS #30 tab Sodium Chloride Tab 1 gm PO BID #60 tab Continue Finasteride [Proscar] 5 mg PO DAILY Tamsulosin [Flomax] 0.8 mg PO DAILY Vit C/E/Zn/Coppr/Lutein/Zeaxan [Preservision Areds 2 Softgel] 1 cap PO BID Ondansetron [Zofran] 4 mg PO DAILY PRN PRN Reason: Nausea And Vomiting Ibuprofen [Motrin Ib] 400 mg PO Q6H PRN PRN Reason: Pain Acetaminophen [Tylenol Extra Strength] 1,000 mg PO Q6H PRN PRN Reason: Fever And/ Or Pain Discontinued amLODIPine [Norvasc] 5 mg PO HS Discharge Medication List Finasteride [Proscar] 5 mg PO DAILY 04/07/22 [History] Tamsulosin [Flomax] 0.8 mg PO DAILY 04/07/22 [History] Vit C/E/Zn/Coppr/Lutein/Zeaxan [Preservision Areds 2 Softgel] 1 cap PO BID 04/07/22 [History] Acetaminophen [Tylenol Extra Strength] 1,000 mg PO Q6H PRN 10/30/23 [History] Ibuprofen [Motrin Ib] 400 mg PO Q6H PRN 10/30/23 [History] Ondansetron [Zofran] 4 mg PO DAILY PRN 10/30/23 [History] Sodium Chloride Tab 1 gm PO BID #60 tab 11/04/23 [Rx] amLODIPine [Norvasc] 2.5 mg PO HS #30 tab 11/04/23 [Rx] Follow up Appointment(s)/Referral(s): Todd Lees NPC [Nurse Practitioner] - 11/07/23 9:15 am (This is appt with Oncology RESIDENTIAL RECYCLE DRIVER) Arthur Armstrong MD [Primary Care Provider] - 11/07/23 ([facility] will call the day before to give a time frame.) Discharge Disposition: HOME WITH HOME HEALTH SERVICES
== END 2023-11-04 13:20 | disposition home health service (06) ==
LOC: EC 09:14 → 5NMEDONC 14:09
PROVIDERS: ADMIT Hospitalist; ATTEND Hospitalist
DX: R53.1 Weakness (principal); E87.1 Hypo-osmolality and hyponatremia; E83.51 Hypocalcemia; C34.90 Malignant neoplasm of unspecified part of unspecified bronchus or lung; C79.51 Secondary malignant neoplasm of bone; I10 Essential (primary) hypertension; E53.8 Deficiency of other specified B group vitamins; N40.0 Benign prostatic hyperplasia without lower urinary tract symptoms; Z66 Do not resuscitate; Z87.891 Personal history of nicotine dependence; Z79.899 Other long term (current) drug therapy
CPT/HCPCS: 96361 ×3; 96372 ×3; 96360; 99284; 36415; 93005; 97161; 85379; 84300; 83930; 80053; 80048 ×2; 83605; 83735; 84443; 84484; 85025; 81003; 71046; 71275; G0378 ×3; S0138 ×2; J1650 ×3; Q9967

== ENCOUNTER → 2023-12-04 | Outpatient (CLI) | payer MEDICARE, BC ==
--- NOTE | 2023-12-04 15:05 | XR ---
EXAMINATION TYPE: XR Hip RT and AP Pelvis DATE OF EXAM: 12/04/2023 COMPARISON: NONE HISTORY: Pain TECHNIQUE: A single AP view of the pelvis is obtained. Two views of the right hip are obtained. FINDINGS: There is no acute fracture/dislocation evident in the pelvis. Degenerative changes lower l umbar spine. Mild generalized demineralization. There is mild to moderate hip arthropathy. Surgical c lips overlying the lower pelvis. Vascular calcifications noted. No acute fracture or dislocation. IMPRESSION: 1. Hip arthropathy with no diagnostic evidence of acute fracture or dislocation. No destructive serna es. 2. There is a faint lucency in the right inferior pubic ramus. Recommend CT of the pelvis to exclude lucent lesion.
== END | disposition home or self-care (01) ==
LOC: RADXRMAIN 14:38
PROVIDERS: ATTEND Nurse Practitioner Family
DX: C34.10 Malignant neoplasm of upper lobe, unspecified bronchus or lung (principal); I10 Essential (primary) hypertension; Z71.3 Dietary counseling and surveillance
CPT/HCPCS: 73502

== ENCOUNTER → 2023-12-05 | Outpatient (CLI) | payer MEDICARE, BC ==
--- NOTE | 2023-12-09 11:43 | MR ---
EXAMINATION TYPE: MR brain wo/w con DATE OF EXAM: 12/05/2023 4:15 PM CLINICAL INDICATION:Male, 83 years old with history of C34.10 LUNG CANCER; PHH, Lung cancer, weakness on left side (arms and legs), COMPARISON: 03/04/2023. TECHNIQUE: Multi planar, multi sequence imaging was performed through the brain including: T1, T2, In version recovery, susceptibility weighted imaging and gradient echo imaging and Diffusion weighted im aging. The patient was then given intravenous contrast and multi planar, T1 fat-saturation images wer e obtained. IV Contrast: 8.5 cc Gadavist FINDINGS: Mild cerebral atrophy with proportional dilation of ventricular system. Diffusion-weighted imaging s hows no evidence of restricted diffusion to suggest acute/subacute infarct. Intracranial arterial peggy w voids are maintained. Midline structures show no abnormality. Scattered foci of high T2 signal inte nsity are seen within the periventricular white matter. The susceptibility weighted images do not rev eal any evidence for micro-hemorrhage. After administration of gadolinium, no abnormal enhancement is seen. The bone marrow signal is within normal limits. Paranasal sinuses and mastoid air cells: Mild scattered paranasal sinus disease. Visualized orbits: Orbital contents are intact. IMPRESSION: 1. No evidence of intracranial mass, acute/subacute infarct, or abnormal enhancement. 2. Nonspecific white matter changes, likely related to small vessel ischemic disease.
== END | disposition home or self-care (01) ==
LOC: RADMRIMAIN 14:20
PROVIDERS: ATTEND Internal Medicine Hematology & Oncology
DX: C34.10 Malignant neoplasm of upper lobe, unspecified bronchus or lung (principal); I10 Essential (primary) hypertension; Z71.3 Dietary counseling and surveillance
CPT/HCPCS: 70553; A9585

== ENCOUNTER → 2024-01-16 | Outpatient (CLI) | payer MEDICARE, BC ==
--- NOTE | 2024-01-19 12:04 | PE ---
EXAMINATION TYPE: PET CT fusion skull to thigh DATE OF EXAM: 01/16/2024 CLINICAL INDICATION:Male, 83 years old with history of C34.11 LUNG CANCER; TECHNIQUE: Following the intravenous administration of 12.2 mCi of F-18 FDG, whole body images are performed from the skull base to the midthigh. Images are reviewed on the computer in the coronal, a xial, and sagittal planes. Reconstructed rotating images are created on independent workstation and reviewed on the computer. A non-contrast CT is performed in conjunction with the PET scan. Glucose level 112 mg/dL CT DLP: 602 mGycm, Automated exposure control for dose reduction was used. COMPARISON: CT None, PET/CT 09/26/2023., MRI: None FINDINGS: Mediastinal SUV mean is 1.6. Hepatic parenchyma SUV mean is 2.4. SKULL BASE AND NECK: No suspicious radiotracer activity. CHEST, MEDIASTINUM, AND HILAR REGION: Scattered osseous lesions * Right upper lung streaky dilated oval nodule measuring 29 x 16 mm previously 32 x 22 mm on 4 max SUV 4.2, previously 12.1. * Right pulmonary hilum lymph node max SUV 2.5, previously 4.3. ABDOMEN AND PELVIS: No suspicious radiotracer activity. MUSCULOSKELETAL STRUCTURES: Scattered metastatic lesions throughout osseous structures. Examples include: * L1 vertebral body max SUV 8.0, previously 20.5. * Left iliac bone max SUV 10.6, previously 30.0. * Right iliac bone max SUV 2.5, previously 17.9. * L2 vertebral body max SUV 6.9, previously by 3.9 * T1 vertebral body max SUV 11.3, previously 26.1. OTHER CT: Atherosclerosis of the arterial vasculature including coronary arteries. Aortic valve calcifications. Scattered colonic diverticulosis. Brachytherapy beads in the prostate gl and. Trace right pleural effusion. IMPRESSION: Positive response to therapy with decreasing FDG activity and size of metastatic lesions and right up per lung lesion.
== END | disposition home or self-care (01) ==
LOC: RADPETMAIN 12:21
PROVIDERS: ATTEND Internal Medicine Hematology & Oncology
DX: C34.11 Malignant neoplasm of upper lobe, right bronchus or lung (principal)
CPT/HCPCS: 78815; A9552

== ENCOUNTER → 2024-06-05 | Outpatient (CLI) | payer MEDICARE, BC ==
--- NOTE | 2024-06-06 11:15 | PE ---
EXAMINATION TYPE: PET CT fusion skull to thigh DATE OF EXAM: 06/05/2024 CLINICAL INDICATION:Male, 83 years old with history of C34.11 LUNG CANCER; TECHNIQUE: Following the intravenous administration of 9.1 mCi of F-18 FDG, whole body images are p erformed from the skull base to the midthigh. Images are reviewed on the computer in the coronal, ax ial, and sagittal planes. Reconstructed rotating images are created on independent workstation and r eviewed on the computer. A non-contrast CT is performed in conjunction with the PET scan. Glucose l evel 109 mg/dL CT DLP: 774 mGycm, Automated exposure control for dose reduction was used. COMPARISON: CT None, PET/CT 01/16/2024, MRI: None FINDINGS: Mediastinal SUV mean is 1.6. Hepatic parenchyma SUV mean is 2.4. SKULL BASE AND NECK: No suspicious radiotracer activity. CHEST, MEDIASTINUM, AND HILAR REGION: Scattered osseous lesions * Right upper lung streaky dilated oval nodule measuring 27 x 10 mm, previously 29 x 16 mm 32 x 22 m m max SUV 10.7, 4.2, previously 12.1. * Right pulmonary hilum lymph node max SUV 2.5, previously 4.3. ABDOMEN AND PELVIS: Uptake along the right ascending colon/abdominal abdomen within the bowel max SUV 11.0 thought to be physiologic. MUSCULOSKELETAL STRUCTURES: Scattered metastatic lesions throughout osseous structures. Examples include: * L1 vertebral body max SUV 16.4, previously 8.0, 20.5. * Left iliac bone max SUV 11.6, previously 10.6, 30.0. * Right iliac bone max SUV 6.3, previously 2.5, 17.9. * L2 vertebral body max SUV 9.6, previously 6.9, by 3.9 * T1 vertebral body max SUV 12.93, previously 11.3, 26.1. * Right rib 8 Max SUV 10.7, previously 6.9. OTHER CT: Atherosclerosis of the arterial vasculature including coronary arteries. Aortic valve calcifications. Scattered colonic diverticulosis. Brachytherapy beads in the prostate gl and. Trace right pleural effusion. IMPRESSION: Progression of disease with increasing metabolic activity of scattered metastatic lesions.. [facility], , 06/06/2024 11:12 AM
== END | disposition home or self-care (01) ==
LOC: RADPETMAIN 09:40
PROVIDERS: ATTEND Internal Medicine Hematology & Oncology
DX: C34.11 Malignant neoplasm of upper lobe, right bronchus or lung (principal)
CPT/HCPCS: 78815; A9552